=== PATIENT | female | born 1985 | race Caucasian/White ===

== ENCOUNTER 2021-02-28 09:33 | Emergency (ER) | payer MEDICAID, SELFPAY ==
[2021-02-28 09:34] VITALS: BP 117/80; PULSE 103; RESP 16; TEMP 36.6; O2SAT 100; BMI 23.2
--- NOTE | 2021-02-28 09:40 | RAD_ITS ---
STUDY: X-RAY CHEST REASON FOR EXAM: Female, 35 years old. SOB/RIB PAIN TECHNIQUE: PA and lateral views of the chest. COMPARISON: None. FINDINGS: The lungs are clear and expanded. There is no demonstrated pleural abnormality. Normal size heart. Normal mediastinum and lashell. Normal visualized pulmonary arteries. Normal visualized aortic arch and descending thoracic aorta. Normal visualized thoracic spine. Normal visualized ribs, clavicles, and shoulders. There is no demonstrated abnormality of the visualized soft tissue structures of the upper abdomen. RAD/Chest PA and Lateral IMPRESSION: Normal x-ray examination of the chest. Electronically Signed: Pop Sage MD at 9:58 EST , Service support ,
--- NOTE | 2021-02-28 10:55 | EDS_ITS ---
HPI History of Present Illness Chief Complaint: Chest Other Narrative Narrative: 35-year-old female presenting with right-sided lower back/rib pain. She states that she was moving some furniture and this area now hurts after this. She denies any direct trauma. She denies shortness of breath. She states he does have a history of a floating rib in this area. She is concerned that she might have a pneumothorax. Patient is not short of breath. No fever, chills, cough. No DVT/PE risk factors. 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 pets and animals: Yes history of recent travel: No Smoking Status: Current every day smoker tobacco type: cigarettes alcohol intake: current alcohol intake frequency: holidays/special occasions only substance use type: does not use, marijuana and other details: medical marijuana card for pain ROS ROS ED Constitutional Constitutional ED: Denies chills or fever(s) Eyes Eyes: Denies blurry vision or change in vision ENT ENT ED: Denies rhinorrhea or sore throat Cardiovascular Cardiovascular: Denies palpitations or racing heartbeat Respiratory/Chest Respiratory/Chest: Reports other Details: Right posterior rib pain ; Denies cough or dyspnea Gastrointestinal Gastrointestinal: Denies abdominal pain or nausea Genitourinary Genitourinary ED: Denies dysuria or hematuria Musculoskeletal Musculoskeletal: Reports back pain; Denies arthralgias or myalgias Integumentary Denies Abrasions or rash Neurologic Neurologic: Denies headache(s) or paresthesias Psychiatric Psychiatric: Denies anxiety or depression EXAM Physical Exam Const Vital Signs: 02/28/21 09:34 Temperature 97.8 F Temperature Source Temporal Pulse Rate 103 H Respiratory Rate 16 Blood Pressure 117/80 Blood Pressure Mean 92 Pulse Ox 100 Oxygen Delivery Method Room Air Positive well nourished General Appearance ED: NAD HEENT atraumatic Eyes PERRL and EOMs intact bilaterally Neck Neck Narrative: No tracheal deviation Chest Wall Chest Narrative: Tenderness to palpation right posterior ribs. No crepitance or deformity. Equal symmetric breath sounds and chest wall rise. Resp normal respiratory effort and clear to auscultation bilaterally Cardio regular rhythm Rate: regular rate Back/Spine Back/Spine Narrative: Tenderness to palpation right thoracic paraspinal musculature. No midline spinal deformity or step-off. Neuro oriented x3 Sensorium / Orientation: alert Psych mental status grossly normal Skin no rashes or lesions noted MDM MDM MDM Narrative Medical decision making narrative: Patient presenting with nontraumatic right- sided back pain which she is concerned may be a pneumothorax however she is had no direct trauma. I obtained a chest x-ray which on my interpretation shows no acute fractures, pneumothorax, or other acute process. Radiologist does agree. Patient did not want to have any muscle relaxers or anything kind of sedative. She was amenable to a lidocaine patch and states this is helped her before. She will be given 1 in the ED and a prescription for some. I believe this likely musculoskeletal in nature as patient has no respiratory symptoms. Impression: 1. Thoracic strain Radiography Diagnostic Testing: Clinical Impression(s) from Imaging Studies Chest X-Ray 02/28/21 09:40 IMPRESSION: Normal x-ray examination of the chest. Electronically Signed: Pop Sage MD at 9:58 EST , Service support , Discharge Plan Triage Chief Complaint: Chest Other ED Provider: Lee Vu Dx/Rx/DC Orders Instructions: ED Back Spasm, No Trauma Prescriptions: New lidocaine 5 % adhesive patch,medicated 1 patch topical DAILY PRN (Reason: pain) Qty: 1 RF: 0 Primary Care Provider: Care Physician,No Primary Referrals: Kandy Barone MD [STAFF PHYSICIAN] - As Needed Care Physician,No Primary [Primary Care Provider] - Disposition Disposition: Home, Self Care Discharge Date/Time: 02/28/21 11:12
[2021-02-28] MEDS: Lidocaine 5% Patch 1 PATCH TOPICAL (11:11)
== END 2021-02-28 11:12 | disposition home or self-care (01) ==
PROVIDERS: Emergency Provider Student in an Organized Health Care Education/Training Program
DX: S29.012A Strain of muscle and tendon of back wall of thorax, initial encounter (principal); F17.210 Nicotine dependence, cigarettes, uncomplicated; X50.0XXA Overexertion from strenuous movement or load, initial encounter; Y93.89 Activity, other specified; Y92.89 Other specified places as the place of occurrence of the external cause; Y99.8 Other external cause status
CPT/HCPCS: 71046; 99282

== ENCOUNTER → 2023-10-11 | Outpatient (CLI) | payer MEDICAID, SELFPAY ==
--- NOTE | 2023-10-11 15:37 | CT_ITS ---
STUDY: CT RIGHT ANKLE WITHOUT CONTRAST REASON FOR EXAM: Female, 37 years old. DISPLACED FX RT ANKLE RADIATION DOSAGE (If Supplied By Facility): CTDIvol = ( 15.35 ) mGy, DLP = ( 346.09 ) mGycm TECHNIQUE: Thin section transaxial imaging of the ankle was obtained, with sagittal and coronal reconstructed images. Individualized dose optimization techniques were used for this CT. COMPARISON: None. FINDINGS: Normal visualized distal t fibula. There is an acute comminuted intra-articular fracture involving the anterior medial aspect of the distal tibia and tibial plafond with minor separation of fracture fragments and mild widening of the anterior tibiotalar joint space Normal talar dome. Normal talus, calcaneus, navicular and cuboid tarsal bones. Normal subtalar, talonavicular and calcaneocuboid articulations. Normal navicular-cuneiform, cuneiform tarsal bones and intercuneiform articulations. Normal tarsometatarsal articulations and visualized metatarsi. CT/Extremity Lower without Contra IMPRESSION: Acute comminuted intra-articular fracture of the distal medial malleolus with mild widening of the anterior tibiotalar joint Electronically Signed: Emeterio Kamara MD at 17:08 EDT ,
== END | disposition home or self-care (01) ==
LOC: CT 15:27
PROVIDERS: Referring Provider Physician Assistant Surgical; Visit Provider Physician Assistant Surgical
DX: S82.841A Displaced bimalleolar fracture of right lower leg, initial encounter for closed fracture (principal)
CPT/HCPCS: 73700

== ENCOUNTER → 2023-12-15 | Outpatient (CLI) | payer MEDICAID, SELFPAY ==
--- NOTE | 2023-12-15 16:44 | MRI_ITS ---
EXAM: MR LUMBAR SPINE WITHOUT INTRAVENOUS CONTRAST CLINICAL INDICATION: pain TECHNIQUE: Multiplanar and multisequence MR images of the lumbar spine without intravenous contrast. COMPARISON: Thoracic spine radiographs, 11/03/2023; chest radiograph, 10/08/2023; CT abdomen and pelvis, 08/28/2004 FINDINGS: VERTEBRAE: No additional evidence of a fracture. Maintained lumbar lordosis. Mild chronic T12 superior endplate compression fracture with less than 25% vertebral body height loss. 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 No retropulsion of the posterior cortex no involvement of the posterior elements. No spondylolisthesis. SPINAL CORD: No significant abnormality. Normal position and signal intensity of the conus medullaris. SOFT TISSUES: No significant abnormality. DISCS/SPINAL CANAL/NEURAL FORAMINA: L1-L2: Mild bilateral facet arthrosis. No disc herniation, spinal canal stenosis, or neural foraminal narrowing. L2-L3: No significant abnormality. No disc herniation, spinal canal stenosis, or neural foraminal narrowing. L3-L4: Very subtle disc bulge and mild bilateral facet arthrosis. No disc herniation, spinal canal stenosis, or neural foraminal narrowing. L4-L5: Mild bilateral facet arthrosis and very subtle disc bulge. No disc herniation, spinal canal stenosis, or neural foraminal narrowing. L5-S1: Mild bilateral facet arthrosis. No disc herniation, spinal canal stenosis, or neural foraminal narrowing. MRI/Spine Lumbar (Routine) IMPRESSION: 1. Mild multilevel degenerative changes. No critical spinal canal and neural foraminal stenosis and there is no evidence of a nerve root impingement. 2. Mild chronic T12 superior endplate compression fracture with less than 25% vertebral body height loss. 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 No retropulsion of the posterior cortex no involvement of the posterior elements. This appears similar to that seen on prior chest radiograph. Electronically Signed: Marcell Mcleod DO at 23:59 EDT ,
== END | disposition home or self-care (01) ==
LOC: MRI 16:36
PROVIDERS: Referring Provider Orthopaedic Surgery Orthopaedic Surgery of the Spine; Visit Provider Orthopaedic Surgery Orthopaedic Surgery of the Spine
DX: S22.089A Unspecified fracture of T11-T12 vertebra, initial encounter for closed fracture (principal); M54.16 Radiculopathy, lumbar region; X58.XXXA Exposure to other specified factors, initial encounter
CPT/HCPCS: 72148

== ENCOUNTER 2024-09-08 03:27 | Outpatient (REF) | payer SELFPAY ==
[2024-09-08 03:28] VITALS: BP 130/71; PULSE 130; RESP 18; TEMP 36.7; O2SAT 99; BMI 20.2
--- OUTSIDE RECORDS SUMMARY | 2024-09-08 03:48 | XMS RPT_ITS | CCD ---
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 any records with all medication providers or retail pharmacies. Education Materials Dental Pain A crack or cavity in a tooth can cause tooth pain. This is because the crack or cavity exposes the sensitive inner area of the tooth. An infection in the gum or the root of the tooth can cause pain and swelling. The pain is often made worse when you drink hot or cold beverages. It can also be worse when you bite on hard foods. Pain may spread from the tooth to your ear or the area of the jaw on the same side. Home care Follow these tips when caring for yourself at home: Don't have hot and cold foods and drinks. Your tooth may be sensitive to changes in temperature. Use toothpaste made for sensitive teeth. Flora gently up and down instead of sideways. Brushing sideways can wear away root surfaces if they are exposed. If your tooth is chipped or cracked, or if there is a large open cavity, put oil of cloves directly on the tooth to relieve pain. You can buy oil of cloves at [employer]. Some pharmacies carry an cylb-jmh-zqziqtm toothache kit. This contains a paste that you can put on the exposed tooth to make it less sensitive. Put a cold pack on your jaw over the sore area to help reduce pain. You may use vyxl-osi-mftcjag medicine to ease pain, unless your doctor prescribed another medicine. If you have chronic liver or kidney disease, talk with your healthcare provider before using acetaminophen or ibuprofen. Also talk with your provider if you ve had a stomach ulcer or GI bleeding. If you have signs of an infection, you will be given an antibiotic. Take it as directed. Follow-up care Follow up with your dentist, or as advised. Your pain may go away with the treatment given today. But only a dentist can fully look at and treat the cause of your pain. This will keep the pain from coming back. Call 911 Call 911 if any of these occur: Unusual drowsiness Headache or stiff neck Weakness or fainting Difficulty swallowing or breathing When to seek medical advice Call your health care provider right away if any of these occur: Your face becomes swollen or red Pain gets worse or spreads to your neck Fever of 100.4 F (38.0 C) or higher, or as directed by your healthcare provider Pus drains from the tooth [id number] [place] [address]. All rights reserved. This information is not intended as a substitute for professional medical care. Always follow your healthcare professional's instructions. Additional Information VACCINATE! IT SAVES LIVES! Members of the community who have not yet received the COVID-19 vaccine and would like to receive it can visit one of [facility] vaccine clinics. There are many vaccine clinic locations within the [facility]. For locations and available times, please visit www.gettheshot.coronavirus.[place].gov /. It is important to note that some COVID mobile vaccine clinics are held outdoors and may be canceled in rainy or stormy conditions. To learn more about pediatric vaccinations (ages 5-11), we invite you to visit the [facility] webpage. https://www.[email or web address].org/page s/2948-Jklrc-Qmwujtddbzd-Frequently -Asked-Questions.html To learn more about the COVID-19 vaccine, we invite you to visit the CDC website for a list of frequently asked questions. https://www.cdc.gov/coronavirus/201 9-ncov/vaccines/faq.html [facility] Patient Portal Access Instructions: Stay connected with your healthcare team and access your personal medical information anytime with the [employer] Patient Portal. If you would like a full copy of your medical records please contact the [facility] Medical Records Department Wednesday through Wednesday between 8a.m. and 4:30p.m. Please follow the directions below to access the portal: 1.Access the email account you provided upon registration to the [facility].2.Look for an invitation email from [facility].3.Open the email and access the invitation link: Accept Invitation to [facility]4.Fill in the required ghosh to create your account. Sign into [email or web address] with your username and password that you created in the above steps to stay up to date. You can then view a summary of results, a summary of your visits, and the ability to download your summaries to your computer or send the information securely to a physician. Remember that your healthcare information is confidential, so carefully consider who you will allow to register on the [facility] Patient Portal for access to your information. You can also access the [facility] Patient Portal on the [employer]. Simply click on Health Records under Health Data and then click on the [employer] logo. HOW TO SAFELY DISPOSE OF PRESCRIPTION MEDICATIONS Please use one of the following methods to safely dispose of your unused medications. 1.Use a drug disposal kit: the drug disposal pouch allows you to safely discard your old and unused drugs. Ask your nurse to give you one when you are discharged.2.Visit a local take-back location: Many local pharmacies and police departments have programs that collect old and unwanted prescription drugs. Call your local pharmacy or go to http://[employer] [facility]Software/4O4Eo9f to find one close to you.3.Make use of household items: Use cat litter or old coffee grounds to dispose medications if other options are not available. Mix your drugs with these household products, seal them in an airtight container and throw it into the garbage. Call [facility]: [phone] to be sure your drugs can be disposed of in this way. Some medicines may require a different approach.4.Never flush your medications down the toilet. IF YOU HAVE BEEN PRESCRIBED AN OPIOIDS FOR PAIN If you have been prescribed an opioid (such as hydrocodone, oxycodone or morphine), it is critical to understand the possible side effects and risks of opioid pain medications. Even when taken as directed, opioids can have several side effects including: Tolerance, meaning you might need to take more of a medication for the same pain relief. Nausea, vomiting and/or constipation. Sleepiness, dizziness, dry mouth, confusion, depression or itching. Physical dependence, meaning you have withdrawal symptoms when a medication is stopped ? this can develop within a few days. KNOW YOUR RESPONSIBILITIES It is important to know exactly how much and how often to take the opioid pain medications you are prescribed. Never take opioids in higher amounts or more often than prescribed. Do not combine opioids with alcohol or other drugs that cause drowsiness, such as benzodiazepines, also known as benzos, including diazepam and alprazolam, muscle relaxants or sleep aids. Never sell or share prescription opioids. This is illegal. Store opioids in a secure place and out of reach of others (including children, family, friends and visitors). The last page(s) of this document has been signed and retained as a CHART COPY Signatures Patient Education Materials Dental Pain Medication Leaflets My discharge plan and instructions have been reviewed and explained to me and I,DEDIC, CLAIRE Rosanne understand my current condition and have read and understand these discharge instructions. I have received a written copy of the plan/instructions. If I have questions, I am aware that I should contact my doctor. 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 It often starts with a crack or cavity in the tooth. A pocket of pus forms between the tooth and the bone. The infection causes pain and swelling of the gum, cheek, or jaw. The pain is often made worse by drinking hot or cold fluids, or biting on hard foods. Pain may be felt in the facial sinus or in the ear. A severe infection can cause problems with swallowing and breathing. Causes Cavities Trauma Previous dental work Symptoms Pain Swelling around the tooth or face and cheek Redness Bad breath Bad taste in the mouth Fever You will be started on an antibiotic. But, final treatment requires draining the pus. This can be done by removing the tooth or getting a root canal. An oral surgeon typically removes diseased teeth. An dj instructor does a root canal. This involves drilling an opening in the tooth to get to access the canals in the root. Once these are reached, the pus can be drained. Then the canals are cleaned and shaped before filling them with a special material called jose percha. After the infection has healed, a crown is placed over the tooth. Home care The following guidelines will help you care for your abscess at home: Don't have hot or cold foods and liquids. Your tooth may be sensitive to temperature changes. If your tooth is chipped or cracked, or if there is a large open cavity, apply oil of cloves directly to the tooth to reduce pain. Oil of cloves is sold wene-upu-gbnsbaf in pharmacies. Some pharmacies carry an qrqd-wqr-iudifbf toothache kit. This contains oil of cloves and a paste, which can be applied over the exposed tooth to decrease sensitivity. Apply an ice pack (ice cubes in a plastic bag, wrapped in a towel) over the injured area for 10 to 20 minutes every 1 to 2 hours the first day for pain relief. Continue this 3 to 4 times a day until the pain and swelling goes away. To make an ice pack, put ice cubes in a plastic bag that seals at the top. Wrap the bag in a clean, thin towel or cloth. Never put ice or an ice pack directly on the skin. You can take acetaminophen or ibuprofen for pain, unless you were given a different pain medicine to use. If you have chronic liver or kidney disease, have ever had a stomach ulcer or gastrointestinal bleeding, or are taking blood-thinning medicines, talk with your healthcare provider before using these medicines. An antibiotic will be prescribed. Take it as directed until completed, even if you are feeling better sooner. Follow-up care Follow up as advised with an dj instructor, or oral surgeon. Even though your pain may improve with the treatment given today, only a dentist, dj instructor, or oral surgeon can provide full treatment for this problem. If a culture was done, you will be told if the treatment needs to be changed. You can call in as directed for the results. If X-rays were taken, they will be reviewed by a specialist. You will be given the results, especially if they affect treatment. Call 911 Call 911 if any of these occur: Trouble breathing or swallowing, or wheezing Hoarse voice or trouble speaking Confusion Extreme drowsiness or trouble awakening Fainting or loss of consciousness Rapid heart rate When to seek medical advice Call your healthcare provider right away if any of these occur: Swollen or red face or eyelid Pain gets worse or spreads to the neck You have a fever of 100.4 F (38 C) or higher, or as directed by your healthcare provider Unusual drowsiness, a headache or stiff neck, or weakness Pus drains from the gum or tooth You can't open your mouth wide [id number] [place] [address]. All rights reserved. This information is not intended as a substitute for professional medical care. Always follow your healthcare professional's instructions. Follow Up Care 10/14/2022 16:48:22 With:ROJAS CHAN DO Address: [address] [place] [phone] When:2-4 days [facility] 10-14-2022 Note Discharge Instructions Thank you for allowing [facility] to assist you with your healthcare needs. The following is important discharge information regarding your hospital visit. Diagnosis from Today's Visit Abscess - simple Dental abscess What to Do Next Instructions from Your Care Team No qualifying data available. Post Acute Orders No qualifying data available. You Need to Schedule the Following Appointments Follow Up with ROJAS CHAN DO When Within 2-4 days Where: [address] [place] [address] [phone] Allergies No Known Medication Allergies Medications Please ask your primary doctor or pharmacist before taking any other medication not listed, including over the counter drugs, herbal medications, vitamins and or supplements as they may interact with your home medications. What How Much When Instructions Last Dose New clindamycin (clindamycin 300 mg oral capsule) 1 cap by mouth Every 6 hours Duration: 10 Days Printed Prescription Unchanged lidocaine topical (lidocaine 5% topical patch) 1 patch(es) Transdermal Every day as needed for Pain apply to most painful area. remove patch after 12 hours Please take this list to your next doctor s visit. Bring all medications you take, including over the counter medications, herbals and other supplements with you to your doctor s visit. Patients and families are reminded to discard old lists and to update any records with all medication providers or retail pharmacies. Medication Leaflets clindamycin (oral/injection) (javier Jensen) Cleocin HCl, Cleocin Pediatric, Cleocin Phosphate What is the most important information I should know about clindamycin? Clindamycin can cause diarrhea, which may be severe or lead to serious, life-threatening intestinal problems. If you have diarrhea that is watery or bloody, stop using clindamycin and call your doctor. What is clindamycin? Clindamycin is an antibiotic that is used to treat serious infections caused by bacteria. Clindamycin may also be used for purposes not listed in this medication guide. What should I discuss with my healthcare provider before using clindamycin? You should not use this medicine if you are allergic to clindamycin or lincomycin. Tell your doctor if you have ever had: colitis, Crohn's disease, or other intestinal disorder; eczema, or allergic skin reaction; asthma or a severe allergic reaction to aspirin; liver or kidney disease; or an allergy to yellow food dye. It is not known whether this medicine will harm an unborn baby. Tell your doctor if you are or plan to become . Clindamycin can pass into breast milk and may cause side effects in the nursing baby. If you are while taking this medicine, call your doctor if your baby has diaper rash, redness or white patches in the mouth or throat, stomach discomfort, or diarrhea that is watery or bloody. Clindamycin injection may contain an ingredient that can cause serious side effects or in very young or premature babies. Do not give this medicine to a child without medical advice. How should I use clindamycin? Follow all directions on your prescription label and read all medication guides or instruction sheets. Use the medicine exactly as directed. Clindamycin oral is taken by mouth. Clindamycin injection is injected into a muscle, or as an infusion into a vein. A healthcare provider will give your first dose and may teach you how to properly use the medication by yourself. Take the capsule with a full glass of water to keep it from irritating your throat. Measure liquid medicine carefully. Use the dosing syringe provided, or use a medicine dose-measuring device (not a kitchen spoon). You may need frequent medical tests during treatment. If you need surgery, tell your surgeon you currently use clindamycin. Use this medicine for the full prescribed length of time, even if your symptoms quickly improve. Skipping doses can increase your risk of infection that is resistant to medication. Clindamycin will not treat a viral infection such as the flu or a common cold. Store at room temperature away from moisture and heat. Protect the injectable medicine from high heat. Do not store the oral liquid in the refrigerator. Throw away any unused oral liquid after 2 weeks. Use a needle and syringe only once and then place them in a puncture-proof 'sharps' container. Follow state or local laws about how to dispose of this container. Keep it out of the reach of children and pets. What happens if I miss a dose? Use the medicine as soon as you can, but skip the missed dose if it is almost time for your next dose. Do not use two doses at one time. What happens if I overdose? Seek emergency medical attention or call the Poison Help line at . What should I avoid while using clindamycin? Antibiotic medicines can cause diarrhea, which may be a sign of a new infection. If you have diarrhea that is watery or bloody, call your doctor. Do not use anti-diarrhea medicine unless your doctor tells you to. What are the possible side effects of clindamycin? Get emergency medical help if you have signs of an allergic reaction (hives, difficult breathing, swelling in your face or throat) or a severe skin reaction (fever, sore throat, burning in your eyes, skin pain, red or purple skin rash that spreads and causes blistering and peeling). Seek medical treatment if you have a serious drug reaction that can affect many parts of your body. Symptoms may include: skin rash, fever, swollen glands, flu-like symptoms, muscle aches, severe weakness, unusual bruising, or yellowing of your skin or eyes. Call your doctor at once if you have: kidney problems--swelling, urinating less, feeling tired or short of breath; liver problems--loss of appetite, stomach pain (upper right side), tiredness, itching, dark urine, chad-colored stools, jaundice (yellowing of the skin or eyes); any change in bowel habits; severe stomach pain, diarrhea that is watery or bloody; little or no urination; or a metallic taste in your mouth (after clindamycin injection). Common side effects may include: nausea, vomiting, stomach pain; mild skin rash; or vaginal itching or discharge; This is not a complete list of side effects and others may occur. Call your doctor for medical advice about side effects. You may report side effects to FDA at 3-259-QEA-4671. What other drugs will affect clindamycin? Sometimes it is not safe to use certain medications at the same time. Some drugs can affect your blood levels of other drugs you take, which may increase side effects or make the medications less effective. Other drugs may affect clindamycin, including prescription and vjoy-tlp-ptzkdgj medicines, vitamins, and herbal products. Tell your doctor about all your current medicines and any medicine you start or stop using. Where can I get more information? Your pharmacist can provide more information about clindamycin. Remember, keep this and all other medicines out of the reach of children, never share your medicines with others, and use this medication only for the indication prescribed. Every effort has been made to ensure that the information provided by [employer]. ('[employer]') is accurate, up-to-date, and complete, but no guarantee is made to that effect. Drug information contained herein may be time sensitive. [employer] information has been compiled for use by healthcare practitioners and consumers in the [place] and therefore [employer] does not warrant that uses outside of the [place] are appropriate, unless specifically indicated otherwise. [employer] drug information does not endorse drugs, diagnose patients or recommend therapy. [employer] drug information is an informational resource designed to assist licensed healthcare practitioners in caring for their patients and/or to serve consumers viewing this service as a supplement to, and not a substitute for, the expertise, skill, knowledge and judgment of healthcare practitioners. The absence of a warning for a given drug or drug combination in no way should be construed to indicate that the drug or drug combination is safe, effective or appropriate for any given patient. [facility] does not assume any responsibility for any aspect of healthcare administered with the aid of information [facility] provides. The information contained herein is not intended to cover all possible uses, directions, precautions, warnings, drug interactions, allergic reactions, or adverse effects. If you have questions about the drugs you are taking, check with your doctor, nurse or pharmacist. Copyright 9142-3168 [employer] [facility]. Version: 14.. Revision Date: 12/16/2021. Education Materials Dental Abscess A dental abscess is an infection of the tooth socket. It often starts with a crack or cavity in the tooth. A pocket of pus forms between the tooth and the bone. The infection causes pain and swelling of the gum, cheek, or jaw. The pain is often made worse by drinking hot or cold fluids, or biting on hard foods. Pain may be felt in the facial sinus or in the ear. A severe infection can cause problems with swallowing and breathing. Causes Cavities Trauma Previous dental work Symptoms Pain Swelling around the tooth or face and cheek Redness Bad breath Bad taste in the mouth Fever You will be started on an antibiotic. But, final treatment requires draining the pus. This can be done by removing the tooth or getting a root canal. An oral surgeon typically removes diseased teeth. An dj instructor does a root canal. This involves drilling an opening in the tooth to get to access the canals in the root. Once these are reached, the pus can be drained. Then the canals are cleaned and shaped before filling them with a special material called jose percha. After the infection has healed, a crown is placed over the tooth. Home care The following guidelines will help you care for your abscess at home: Don't have hot or cold foods and liquids. Your tooth may be sensitive to temperature changes. If your tooth is chipped or cracked, or if there is a large open cavity, apply oil of cloves directly to the tooth to reduce pain. Oil of cloves is sold eidv-sra-mgnwxpf in pharmacies. Some pharmacies carry an wchk-kxu-kmidcfq toothache kit. This contains oil of cloves and a paste, which can be applied over the exposed tooth to decrease sensitivity. Apply an ice pack (ice cubes in a plastic bag, wrapped in a towel) over the injured area for 10 to 20 minutes every 1 to 2 hours the first day for pain relief. Continue this 3 to 4 times a day until the pain and swelling goes away. To make an ice pack, put ice cubes in a plastic bag that seals at the top. Wrap the bag in a clean, thin towel or cloth. Never put ice or an ice pack directly on the skin. You can take acetaminophen or ibuprofen for pain, unless you were given a different pain medicine to use. If you have chronic liver or kidney disease, have ever had a stomach ulcer or gastrointestinal bleeding, or are taking blood-thinning medicines, talk with your healthcare provider before using these medicines. An antibiotic will be prescribed. Take it as directed until completed, even if you are feeling better sooner. Follow-up care Follow up as advised with an dj instructor, or oral surgeon. Even though your pain may improve with the treatment given today, only a dentist, dj instructor, or oral surgeon can provide full treatment for this problem. If a culture was done, you will be told if the treatment needs to be changed. You can call in as directed for the results. If X-rays were taken, they will be reviewed by a specialist. You will be given the results, especially if they affect treatment. Call 911 Call 911 if any of these occur: Trouble breathing or swallowing, or wheezing Hoarse voice or trouble speaking Confusion Extreme drowsiness or trouble awakening Fainting or loss of consciousness Rapid heart rate When to seek medical advice Call your healthcare provider right away if any of these occur: Swollen or red face or eyelid Pain gets worse or spreads to the neck You have a fever of 100.4 F (38 C) or higher, or as directed by your healthcare provider Unusual drowsiness, a headache or stiff neck, or weakness Pus drains from the gum or tooth You can't open your mouth wide [id number] The depict. [address] [place] [address], [place] [address]. All rights reserved. This information is not intended as a substitute for professional medical care. Always follow your healthcare professional's instructions. Additional Information VACCINATE! IT SAVES LIVES! Members of the community who have not yet received the COVID-19 vaccine and would like to receive it can visit one of [facility] vaccine clinics. There are many vaccine clinic locations within the [facility]. For locations and available times, please visit www.gettheshot.coronavirus.[place].gov /. It is important to note that some COVID mobile vaccine clinics are held outdoors and may be canceled in rainy or stormy conditions. To learn more about pediatric vaccinations (ages 5-11), we invite you to visit the [facility] webpage. https://www.[facility].org/page s/4427-Lklkq-Zhevkvvxsvr-Frequently -Asked-Questions.html To learn more about the COVID-19 vaccine, we invite you to visit the CDC website for a list of frequently asked questions. https://www.cdc.gov/coronavirus/201 9-ncov/vaccines/faq.html [facility] Patient Portal Access Instructions: Stay connected with your healthcare team and access your personal medical information anytime with the [facility] Patient Portal. If you would like a full copy of your medical records please contact the [facility] Medical Records Department Wednesday through Wednesday between 8a.m. and 4:30p.m. Please follow the directions below to access the portal: 1.Access the email account you provided upon registration to the hospital.2.Look for an invitation email from [facility].3.Open the email and access the invitation link: Accept Invitation to [facility]4.Fill in the required ghosh to create your account. Sign into [email or web address] with your username and password that you created in the above steps to stay up to date. You can then view a summary of results, a summary of your visits, and the ability to download your summaries to your computer or send the information securely to a physician. Remember that your healthcare information is confidential, so carefully consider who you will allow to register on the [facility] Patient Portal for access to your information. You can also access the [facility] Patient Portal on the [employer]. Simply click on Health Records under Health Data and then click on the [employer] logo. HOW TO SAFELY DISPOSE OF PRESCRIPTION MEDICATIONS Please use one of the following methods to safely dispose of your unused medications. 1.Use a drug disposal kit: the drug disposal pouch allows you to safely discard your old and unused drugs. Ask your nurse to give you one when you are discharged.2.Visit a local take-back location: Many local pharmacies and police departments have programs that collect old and unwanted prescription drugs. Call your local pharmacy or go to http://[facility].FairSoftware/9K3Vn9g to find one close to you.3.Make use of household items: Use cat litter or old coffee grounds to dispose medications if other options are not available. Mix your drugs with these household products, seal them in an airtight container and throw it into the garbage. Call [facility]: [phone] to be sure your drugs can be disposed of in this way. Some medicines may require a different approach.4.Never flush your medications down the toilet. IF YOU HAVE BEEN PRESCRIBED AN OPIOIDS FOR PAIN If you have been prescribed an opioid (such as hydrocodone, oxycodone or morphine), it is critical to understand the possible side effects and risks of opioid pain medications. Even when taken as directed, opioids can have several side effects including: Tolerance, meaning you might need to take more of a medication for the same pain relief. Nausea, vomiting and/or constipation. Sleepiness, dizziness, dry mouth, confusion, depression or itching. Physical dependence, meaning you have withdrawal symptoms when a medication is stopped ? this can develop within a few days. KNOW YOUR RESPONSIBILITIES It is important to know exactly how much and how often to take the opioid pain medications you are prescribed. Never take opioids in higher amounts or more often than prescribed. Do not combine opioids with alcohol or other drugs that cause drowsiness, such as benzodiazepines, also known as benzos, including diazepam and alprazolam, muscle relaxants or sleep aids. Never sell or share prescription opioids. This is illegal. Store opioids in a secure place and out of reach of others (including children, family, friends and visitors). The last page(s) of this document has been signed and retained as a CHART COPY Signatures Patient Education Materials Tooth Abscess Medication Leaflets clindamycin (oral/injection) My discharge plan and instructions have been reviewed and explained to me and I,CLAIRE SMITH understand my current condition and have read and understand these discharge instructions. I have received a written copy of the plan/instructions. If I have questions, I am aware that I should contact my doctor. 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: ____ Date/Time: Relationship to Patient: __ Witness Name/Signature: Date/Time: [facility] 08-28-2021 Evaluation + Plan note Diagnostic Tests PendingRheumatoid Factor 08/28/21Antinuclear Antibody Screen, Serum 08/28/21 Future Scheduled TestsMRI Spine Cervical w/o Contrast 07/23/21 [facility] 06-26-2020 Evaluation + Plan note Future Scheduled TestsPathology Drop Wire Aligner Request 06/26/20XR Chest 2 Views (PA & Lateral) 06/13/20 [facility] Evaluation + Plan note Future Appointments Appointment Date:05/15/2021 10:30:00 AM Scheduled Provider: Location:[facility] Appointment Type:US OB < 14 weeks Future Scheduled TestsPathology Drop Wire Aligner Request 06/26/20XR Chest 2 Views (PA & Lateral) 06/13/20 [facility] Evaluation note Diagnosis Bimalleolar ankle fracture, right, closed, with routine healing, subsequent encounter- Primary documented in this encounter [facility] Diagnosis Injury of right ankle, initial encounter- Primary documented in this encounter [facility]* Diagnosis Bimalleolar ankle fracture, right, closed, with routine healing, subsequent encounter- Primary documented in this encounter [facility]* Diagnosis Bimalleolar ankle fracture, right, closed, with routine healing, subsequent encounter- [facility] Diagnosis Bimalleolar ankle fracture, right, closed, with routine healing, subsequent encounter- [facility] Diagnosis Post-traumatic arthritis of ankle, right- Primary Painful orthopaedic hardware Other complications due to other internal orthopedic device, implant, and graft [facility] Diagnosis Right ankle pain, unspecified chronicity documented in this encounter [facility] note* Diagnosis Closed fracture of right ankle, initial encounter- Primary documented in this encounter [facility] course Narrative No data available for this section [facility] Hospital Discharge instructions No data available for this section [facility] Progress note No data available for this section [facility] Reason for visit Narrative* Diagnostic Procedure Only (Routine) - Closed Specialty Diagnoses / Procedures Referred By Contac t Referred To Contact XR IMAGING Diagnoses Right ankle pain, unspecified chronicity Procedures XR ANKLE GENERAL 3V AP/LAT/OBL RIGHT RADEX ANKLE COMPLETE MINIMUM 3 VIEWS Theodore Michael [address] [place] [address] Phone: tel: fax: [place] [phone] Referral ID Status Reason Start Date Expiration Date V isits Requested Visits Authorized [id number] Closed Auto-Generate d Referral 08/02/2024 09/01/2025 1 1 [facility] Summary Purpose Family History No Family History Records Found Advance Directives No Advanced Directives Records FoundNo Advanced Directives Records FoundNo Advanced Directives Records FoundNo Advanced Directives Records Found Additional Source Comments Care Team (unrecognized sect ion and content) Personnel Name: ROJAS CHAN DO Address: [address] [place] [address] [facility] [place], [place] [address] Name: Manju Nash PT Care Team Personnel Name: Manju Nash PT Position: P3 Scheduling - Excavation Laborer Advanced Member Role: Other Name: CATHERINE MAHARAJ MD Member Role: Pain Management Address: Address: [address] [place] [address] Pain Management [place], [place] [address] Name: ROJAS CHAN DO Position: P4 Physician - Primary Care Member Role: Primary Care Physician Address: Address: [address] [place] [address]- Name: ASHLEY SEE MD Position: ED Physician Member Role: Attending Physician Address: Address: [facility] [address] [place] [address]- Care Team Related Persons Name: JOSHUA SMITH Address: [facility] MAIN Address: Home [address] [place], [place] [id number] Address: Temporary [address] [place], [place] [id number] Name: IESHA WEAVER Address: Home [address] [place], [place] [phone] [place] Address: Temporary [address] [place] [phone] Name: DUSKEY, RAINY Name: DUSKEY, RAINY Name: DUSKEY, RAINY Name: DUSKEY, RAINY Name: DUSKEY, RAINY Name: DUSKEY, RAINY Name: BIBI DEL REAL Address: Home [address] [place] [address] Care Team Personnel Name: Manju Nash Clermona Kinsey PT Position: P3 Scheduling - Excavation Laborer Advanced Member Role: Other Name: CATHERINE MAHARAJ MD Member Role: Pain Management Address: Address: [address] [place] [address] [address] [place] [address]- Name: ROJAS CHAN DO Position: P4 Physician - Primary Care Member Role: Primary Care Physician Address: Address: [address] [place] [address]- Care Team Related Persons Name: JOSHUA SMITH Address: [facility] MAIN Address: Home [address] [place], [place] [id number] Address: Temporary [address] [place], [place] [id number] Name: IESHA WEAVER Address: Home [address] [place], [place] [id number] [place] Address: Temporary [address] [place], [place] [phone] Name: DUSKEY, RAINY Name: DUSKEY, RAINY Name: DUSKEY, RAINY Name: DUSKEY, RAINY Name: DUSKEY, RAINY Name: DUSKEY, RAINY Name: GREEN, BIBI M Address: Home [address] [place] [address] Care Team Personnel Name: Manju Nash Clermona Kinsey PT Position: P3 Scheduling - Excavation Laborer Advanced Member Role: Other Name: CATHERINE MAHARAJ MD Member Role: Pain Management Address: Address: [address] [place] [address] [address] Name: ROJAS CHAN DO Position: P4 Physician - Primary Care Member Role: Primary Care Physician Address: Address: [address] [place] [id number] Care Team Related Persons Name: JOSHUA SMITH Address: [facility] MAIN Address: Home [address] [place], [place] [id number] Address: Temporary [address] [place] [id number] Name: IESHA WEAVER Address: Home [address] [place] [phone] [place] Address: Temporary [address] [place] [phone] Name: DUSKEY, RAINY Name: DUSKEY, RAINY Name: DUSKEY, RAINY Name: DUSKEY, RAINY Name: DUSKEY, RAINY Name: DUSKEY, RAINY Name: GREEN, BIBI M Address: Home [address] [place] [address] Care Team Personnel Name: Manju Nash Clermona Kinsey PT Position: P3 Scheduling - Excavation Laborer Advanced Member Role: Other Name: CATHERINE MAHARAJ MD Member Role: Pain Management Address: Address: [address] [place] [address] [address] Name: ROJAS CHAN DO Position: P4 Physician - Primary Care Member Role: Primary Care Physician Address: Address: [address] [place] [id number] Care Team Related Persons Name: JOSHUA SMITH Address: [facility] MAIN Address: Home [address] [place], [place] [phone] Address: Temporary [address] [place] [phone] Name: IESHA WEAVER Address: Home [address] [place], [place] [phone] [place] Address: Temporary [address] [place], [place] [phone] Name: DUSKEY, RAINY Name: DUSKEY, RAINY Name: DUSKEY, RAINY Name: DUSKEY, RAINY Name: DUSKEY, RAINY Name: DUSKEY, RAINY Name: BIBI DEL REAL Address: Home [address] [place] [address] INFORMATION SOURCE (unrecogn ized section and content) DATE CREATED AUTHOR 10/13/2023 [facility] DATE CREATED AUTHOR AUTHOR'S ORGANIZ ATION 12/19/2023 [facility] DATE CREATED AUTHOR AUTHOR'S ORGANIZ ATION 02/13/2024 [facility] DATE CREATED AUTHOR AUTHOR'S ORGANIZ ATION 08/20/2024 [facility] Reason for Visit (unrecogniz ed section and content) Reason Comments New Patient Right ankle fx, DOI 10/01/23 - [facility] Specialty Diagnoses / Procedures Referred By Rafael sanon Referred To Contact Diagnoses Displaced bimalleolar fracture of right lower leg, subsequent encounter for closed fracture with routine healing Procedures MT OPEN TREATMENT BIMALLEOLAR ANKLE FRACTURE CHG MANUAL APPL STRESS PFRMD PHYS/QHP JOINT FILMS OPEN REDUCTION INTERNAL FIXATION RIGHT BIMALLEOLAR ANKLE FRACTURE WITH ALLOGRAFT, STRESS EXAM RIGHT ANKLE UNDER FLUOROSCOPY Open reduction internal fixation right bimalleolar ankle fracture with allograft, Stress exam right ankle under fluoroscopy Robert Culp MD [address] [facility] [address] [place] [address] Referral ID Status Reason Start Date Expiration Date Visits Re quested Visits Authorized [id number] 10/27/2023 1 1 Reason Comments Post-op Right bimalleolar an kle fracture Sx 11/01/23 Reason Comments Post-op ORIF right bimalleol ar ankle Reason Comments New Pain Scheduled Active and Recently Administ ered Medications (unrecognized section and content) Medication Order 10/30/2023 10/31/2023 11/01/2023 acetaminophen (Tylenol) tablet 1,000 mg (COMPLETED) 1,000 mg, Oral, Once, On 11/01/23 at 0645, For 1 dose, Preprocedure, Maximum dose of acetaminophen is 4000 mg from all sources in 24 hours. Do not administer if patient has taken tylenol <6 hours earlier. Do not give if contraindicated ie. patient has active liver disease or cirrhosis. 0658 (Given - Provid er: Annia Eugene RN) ceFAZolin in dextrose 4% (Ancef) IVPB 2,000 mg (COMPLETED) 2,000 mg, IntraVENous, Administer over 30 Minutes, Once, On Wed11/01/23 at 0645, For 1 dose, Preprocedure, Administer within 1 hour prior to incision. Recommend to repeat in 3-4 hours after initial dose if still intra-op. premix bag, Suspected Indication (Select all that apply): Surgical Prophylaxis 0725 (Given - Provid er: Henri Bey APRN - SILAS)0850 (Anesthesia Volume Adjustment - Provider: ALYSON Mckeon CRNA) celecoxib (CeleBREX) capsule 400 mg (COMPLETED) 400 mg, Oral, Once, On Wed11/01/23 at 0645, For 1 dose, Preprocedure, Avoid with sulfa allergy or creatinine greater than 1.5. Avoid severe hepatic impairment or renal transplant. Avoid if Age > 69. 0658 (Given - Provid er: Annia Eugene RN) famotidine (Pepcid) tablet 20 mg (COMPLETED)(Linked Group 1) 20 mg, Oral, Once, On Wed11/01/23 at 0645, For 1 dose, Preprocedure, IV or ORAL 0658 (Given - Provid er: Annia Eugene RN) sodium chloride 0.9% (NS) flush 10 mL 10 mL, IntraVENous, Every 12 hours scheduled (2 times per day), First dose on Wed11/01/23 at 0900, Preprocedure 0900 (Canceled Entry - Provider: Automatic Discharge Provider - Comment: Automatically canceled at discontinue of medication order) PRN Medication Order 10/30/2023 10/31/2023 11/01/2023 ALPRAZolam (Xanax) disintegrating tablet 0.25 mg 0.25 mg, Oral, PRN, anxiety, Starting on Wed11/01/23 at 0636, For 1 dose, Preprocedure sodium chloride 0.9 % infusion 5-250 mL/hr, IntraVENous, PRN, if patient receiving piggyback infusions and maintenance fluids are not ordered OR KVO fluids to protect IV site / prevent frequent line interruptions/ long duration, Starting on Wed11/01/23 at 0636, Preprocedure, For piggyback infusion, administer at same rate as piggyback for a total of 25 mL. Enter 25 mL into dose field and piggyback rate into rate field of order. If piggyback is infusing at a rate less than 100 mL/hr, enter 25 mL into dose field and 100 mL/hr into rate field of order. For KVO fluids, enter rate of 20 mL/hr or less into rate field of order. 0704 (New Bag - Prov ider: Cee Angela RN)0718 (Continued by Anesthesia - Provider: ALYSON Mckeon CRNA)0850 (Stopped - Provider: ALYSON Mckeon CRNA) sodium chloride 0.9 % irrigation solution (CANCELED) As needed, Starting on Wed11/01/23 at 0746, Intraprocedure 0746 (Given - Provid er: Robert Culp MD) sodium chloride 0.9% (NS) flush 10 mL 10 mL, IntraVENous, PRN, line care, Starting on Wed11/01/23 at 0636, Preprocedure, After every IV line use Xeroform Petrolat Gauze 1x8 pad (CANCELED) As needed, Starting on Wed11/01/23 at 0844, Intraprocedure 0844 (Given - Provid er: Robert Culp MD - Comment: RIGHT ANKLE) Linked Groups Order Group 1: famotidine (Pepcid) tablet 20 mg (COMPLETED)Jump to med 20 mg, Oral, Once, On Wed11/01/23 at 0645, For 1 dose, Preprocedure, IV or ORAL Or famotidine (Pepcid) 20 mg in sodium chloride (PF) 0.9 % 10 mL injection (COMPLETED) 20 mg, IntraVENous, Administer over 2 Minutes, Once, On Wed11/01/23 at 0645, For 1 dose, Preprocedure, IV or ORAL Source Comments (unrecognize d section and content) In the event this informatio n is protected by the Federal Confidentiality of Alcohol and Drug Abuse Patient Records regulations: The Federal rules restrict any use of the information to criminally investigate or prosecute any alcohol or drug abuse patient.[facility] the event this information is protected by the Federal Confidentiality of Alcohol and Drug Abuse Patient Records regulations: The Federal rules restrict any use of the information to criminally investigate or prosecute any alcohol or drug abuse patient.[facility] Hospital[facility] the event this information is protected by the Federal Confidentiality of Alcohol and Drug Abuse Patient Records regulations: The Federal rules restrict any use of the information to criminally investigate or prosecute any alcohol or drug abuse patient.[facility] the event this information is protected by the Federal Confidentiality of Alcohol and Drug Abuse Patient Records regulations: The Federal rules restrict any use of the information to criminally investigate or prosecute any alcohol or drug abuse patient.[facility] Hospital[facility] the event this information is protected by the Federal Confidentiality of Alcohol and Drug Abuse Patient Records regulations: The Federal rules restrict any use of the information to criminally investigate or prosecute any alcohol or drug abuse patient.[facility] FOR RECORDS PERTAINING TO PATIENTS WHO ARE OR HAVE BEEN ENROLLED IN A CHEMICAL DEPENDENCY/SUBSTANCEABUSE PROGRAM, SOME INFORMATION MAY BE OMITTED. This clinical summary was aggregated from multiple sources. Caution should be exercised in using it in the provision of clinical care. This summary normalizes information from multiple sources, and as a consequence, information in this document may materially change the coding, format and clinical context of patient data. In addition, data may be omitted in some cases. CLINICAL DECISIONS SHOULD BE BASED ON THE PRIMARY CLINICAL RECORDS. [facility] provides no warranty or guarantee of the accuracy or completeness of information in this document.
--- NOTE | 2024-09-08 04:00 | RAD_ITS ---
PROCEDURE: THORACIC SPINE 3 VIEWS 09/08/2024 REASON FOR EXAM: PAIN TECHNIQUE: THORACIC SPINE 3 VIEWS COMPARISON: MRI of the lumbar spine on 12/15/2023. FINDINGS: Mild chronic compression fracture of T12 vertebral body. No evidence of associated retropulsion or secondary canal stenosis. Mildly increased kyphosis at the level of the thoracolumbar junction. Normal visualized thoracic vertebrae. Normal disc space heights and vertebral endplates. Normal kyphosis. Normal visualized soft tissue structures. RAD/Thoracic Spine 3 Views IMPRESSION: No evidence for acute abnormality. Reading [facility]
--- NOTE | 2024-09-08 04:00 | RAD_ITS ---
PROCEDURE: LUMBAR SPINE 2 OR 3 VIEWS 09/08/2024 REASON FOR EXAM: PAIN TECHNIQUE: LUMBAR SPINE 2 OR 3 VIEWS COMPARISON: None. FINDINGS: Mild chronic compression deformity of T12 vertebral body. No evidence of associated retropulsion or secondary canal stenosis. Mildly increased kyphosis at the level of the thoracolumbar junction. Mildly exaggerated lumbar lordosis. Mild levoscoliosis apex at L3. T12-L1: Normal disc height. Normal endplates. Normal alignment of the vertebrae. L1-2: Normal disc height. Normal endplates. Normal alignment of the vertebrae. L2-3: Normal disc height. Normal endplates. Normal alignment of the vertebrae. L3-4: Normal disc height. Normal endplates. Normal alignment of the vertebrae. L4-5: Normal disc height. Normal endplates. Normal alignment of the vertebrae. L5-S1: Normal disc height. Normal endplates. Normal alignment of the vertebrae. The soft tissue structures are unremarkable. RAD/Lumbar Spine 2 or 3 Views IMPRESSION: Mild chronic compression deformity of T12 vertebral body. No evidence of associ ated retropulsion or secondary canal stenosis. Mildly increased kyphosis at the level of the thoracolumbar junction. Mildly exaggerated lumbar lordosis. Mild levoscoliosis apex at L3. Reading Location: [facility]
--- NOTE | 2024-09-08 04:00 | RAD_ITS ---
PROCEDURE: CHEST PA AND LATERAL 09/08/2024 REASON FOR EXAM: CHEST PAIN TECHNIQUE: CHEST PA AND LATERAL COMPARISON: None. FINDINGS: The lungs are expanded. There is no demonstrated parenchymal abnormality. There is no demonstrated pleural abnormality. Normal heart and pericardium. Normal mediastinum and lashell. Normal visualized pulmonary arteries. Normal visualized aortic arch and descending thoracic aorta. Normal visualized thoracic spine. Normal visualized ribs, clavicles, and shoulders. There is no demonstrated abnormality of the visualized soft tissue structures of the upper abdomen. RAD/Chest PA and Lateral IMPRESSION: No evidence for acute abnormality. Reading Location[facility]
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
[2024-09-08 04:56] VITALS: BP 112/62; PULSE 110; RESP 18; TEMP 36.4; O2SAT 100
--- OUTSIDE RECORDS SUMMARY | 2024-09-08 05:05 | XMS RPT_ITS | CCD ---
Author Organization [facility] Care Team Providers Care Elastic Attacher Overlock Name Role Phone ROCIO ORTEZ, DR XIE Primary Care Physician [phone] Saad PT, Amelie Unavailable Unavailable [facility] , MARQUIS Attending Unavailable ROCIO ORTEZ, DR XIE Primary Care Unavailable ROCIO ORTEZ, DR XIE Primary Care Unavailable MAYI EDGAR, ASHLEY Gonsalves Attending Unavail able MAYI EDGAR, ASHLEY Gonsalves Attending Unavail able ROCIO ORTEZ, DR XIE Primary Care Unavailable Unavailable Primary Care Provider Unavailabl e ROBBI, ROBERT Attending Unavailable CULP, ROBERT Attending Unavailable LETY, PNEG Referring Unavailable LETY, PENG Referring Unavailable CULP, ROBERT Admitting Unavailable CULP, ROBERT Attending Unavailable CULP, ROBERT Attending Unavailable Shabnam, Marion Attending Unavailable Shabnam, Marion Referring Unavailable Care Physician, No Primary Primary Care Unava ilable Devon Urbano Attending Unavailable Care Physician, No Primary Referring Unava ilable Care Physician, No Primary Primary Care Unava ilable NanciKodi hopson Attending Unavailable Care Physician, No Primary Primary Care Unava ilable Devon Urbano Attending Unavailable Care Physician, No Primary Primary Care Unava ilable Care Physician, No Primary Referring Unava ilable NanciWing hopsonril Attending Unavailable Care Physician, No Primary Primary Care Unava ilable Enrique Urbanoag Attending Unavailable Urbano, Devon Referring Unavailable Care Physician, No Primary Primary Care Unava ilable Unavailable Primary Care Provider UnavailTHEODORE Ellis Referring Unavailable TESTELYSSA, THEODORE Attending Unavailable TESTTHEODORE PERALTA Referring Unavailable Care Physician, No Primary Primary Care Provider Unavailable Dr. Romie Gillis DO Emergency Provider Medications Current Medications Medication Drug Class(es) Dates Sig (Normalized) Sig (Original) acetaminophen 325 mg oral tablet (7 sources) Start: 11-01-2023 End: 12-01-2023 take 1 tablet by mouth every six hours as needed for pain acetaminophen (Tylenol) 325 MG tablet Take 1 tablet (325 mg) by mouth every 6 hours as needed for mild pain (1-3). Do not take if already taking Woody (Hydrocodone) as it has Tylenol (Acetaminophen) in it already. 120 tablet 11/01/2023 12/01/2023 Active Start: 11-01-2023 End: 11-01-2023 take 1000 mg by mouth once, then take 4000 mg by mouth every twenty-four hours 1,000 mg, Oral, Once, On Wed11/01/23 at 0645, For 1 dose, Preprocedure, Maximum [...] pain (1-3). 120 tablet 12/14/2023 01/13/2024 Active meloxicam 15 mg oral tablet (6 sources) [...] 0 Refill(s) Start Date: 07/18/20 Status: Ordered White Clay (Nk) (1 source) Start: 09-08-2024 [place] (Nk) Active September 08, 2024 12:00am oxyCODONE hydrochloride 5 mg oral tablet (2 [...] renal transplant. Avoid if Age > 69. lidocaine 0.05 mg/mg medicated patch (7 sources) Antiarrhythmic, Amide Local Anesthetic Start: 02-28-2021 End: 02-11-2024 Lidocaine 5 % adhesive patch,medicated Discontinued 1 NMA TOPICAL DAILY as needed for pain February 28, 2021 11:57am February 11, 2024 4:02pm leave on most painful area for up to 12 hrs Start: 06-13-2020 lidocaine 5% t opical patch Apply 1 patch(es), Transdermal, Daily, PRN Pain, apply to most painful area. remove patch after 12 hours, # 30 patch(es), 0 Refill(s), Pharmacy: [facility], 151, cm, 06/13/20 13:07:00 EDT, Height, 52.1, kg, 06/13/20 13:07:00 EDT, Dosing Weight Start Date: 06/13/20 Status: Ordered 5 ml sodium chloride 9 mg/ml injection [...] sources) Low blood pressure 06-13-2020 Episodic Other connective tissue disease (1 source) Finding of rib structure; Translations: [Other symptoms and signs involving the musculoskeletal system] 12-09-2020 Episodic Other fractures (1 source) Closed fracture thoracic vertebra, wedge; Translations: [Wedge compression fracture of unspecified thoracic vertebra, initial encounter for closed fracture] Onset: 10-01-2023 Episodic Other fractures (1 source) Unspecified fracture of T11-T12 vertebra, initial encounter for closed fracture; Translations: [Unspecified fracture of T11-T12 vertebra, initial encounter for closed fracture] Onset: 01-13-2024 Episodic Other fractures (1 source) Fracture of twelfth thoracic vertebra; Translations: [Wedge compression fracture of T11-T12 vertebra, initial encounter for closed fracture] 02-11-2024 Episodic Other gastrointestinal disorders (6 sources) Abdominal [...] sources) Decreased vitamin B12 level 05-22-2020 Episodic Other skin disorders (1 source) Skin lesion; Translations: [Disorder of the skin and subcutaneous tissue, unspecified] 12-09-2020 Episodic Laurence-; endo-; and myocarditis; cardiomyopathy (except [...] sources) Degeneration of intervertebral disc 07-25-2013 Chronic Spondylosis; intervertebral disc disorders; other back problems (11 sources) Lumbago with sciatica; Translations: [Pain in thoracic spine] Onset: 11-03-2023 07-18-2020 Episodic Substance-related disorders (6 sources) Marijuana user 06-20-2019 Episodic Unclassified (6 sources) Breast feeding (infant) (observable entity) 07-05-2017 Comment on above: System added from do cumentation. Breast feeding Status documented as Yes on Admission Unclassified (6 sources) Finding of rib structure 06-20-2019 Unclassified (6 sources) Streptococcus agalactiae (organism) 07-30-2015 Past or Other Problems Problem Classification Problem Date Documented Da te Episodic/Chronic Other and delivery including normal (6 sources) care status Onset: 07-05-2017 07-05-2017 Episodic Unclassified (1 source) Closed fracture of right ankle 08-07-2024 Results Test Name Value Interpretation Reference Range Facility [facility] ([id number]) 1985 F Date Time Provider Department 08/07/24 THEODORE MICHAEL During your visit today, we recorded the following information about you: Jemma Akers, LAI 08/08/2024 3:20 PM Signed Theodore Michael [facility] Podiatry Severy23 hours ago (4:11 PM) I ordered a [...] is being referred to a provider in [place]. Explained that this is a second opinion [...] needs to see a physician out in [place] that she would just return to the initial physician in [place] as it is about the same driving distance or closer. Jemma Akers, LAI 08/15/2024 4:30 PM Signed Patient canceled follow [...] Encounter Status:Closed by CORINNA BOBO [facility] CLAIRE SM[facility] ([id number]) 1985 F Date Time Provider Department 08/07/24 [...] Diagnosis:Closed fracture of right ankle, initial encounter [S82.891A] Order(s):CT ANKLE WO IVCON RIGHT [[id number]] Order #: [id number] FUTURE Prescriptions as of 08/07/2024 - meloxicam (MOBIC) 15 mg tablet Take 1 tablet by mouth once daily. Problem List As Of Date: 08/07/2024 (None) Encounter Status:Closed by THEODORE MICHAEL DPM on 08/07/24 [facility] CNOVon 08-04-2024 CNOV Office Visit (PODIWS) CLAIRE SMITH ([id number]) 1985 F Date Time Provider Department 08/04/24 8:15 AM TESTRAKE, THEODORE PODIWS During your visit today, we recorded the following information about you: Ciara Diaz SVEN 08/05/2024 10:53 AM Signed AMB ROOMING INTAKE [...] Powerstep Original Full length. Can purchase at [facility] Runner and boots,shoes and more here in [place], [employer] in [place] or [place]. Also can find in [place] in [facility]. Powersteps can also be purchased online, [...] ankle pain. This prescription was sent to [facility] on [facility] in [place]. Arrange to have the blood work ordered [...] utilize the above equipment. Corinna Bobo LPN Theodore Michael 08/05/2024 10:53 AM Signed Subjective Claire is [...] graft placement in September. - Lives in [place], surgery performed in [place]. - Smokes approximately one pack per day. [...] taken once (more content not included)... Normal [facility] CNPNon 08-04-2024 CNPN Telephone (PODIWS) CLAIRE SMITH ([id number]) 1985 F Date Time Provider Department 08/04/24 THEODORE MICHAEL PODIWS During your visit today, we recorded the following information about you: Corinna Bobo LPN 08/04/2024 2:50 PM Signed Theodore Michael [facility] Podiatry Pool1 hour ago (1:03 PM) Please call patient to inform her that her blood work is essentially normal. Her kidney function is normal. She can take the mobic once daily as needed for pain BRY Alas Amelia, LPN 08/04/2024 2:50 PM Signed Patient notified [...] Status:Closed by CORINNA BOBO on 08/04/24 Normal [facility] Comprehensive metabolic 2000 panelOrdered By: Arely Griffiths on 08-04-2024 Albumin [Mass/Vol] 4.3 g/dL 3.9 - 4.9 g/dL [facility] ALP [Catalytic activity/Vol] 80 U/L 34 - 123 U/L [facility] ALT [Catalytic activity/Vol] 14 U/L 7 - 38 U/L [facility] Anion gap [Moles/Vol] 11 mmol/L 8 - 15 mmol/L [facility] AST [Catalytic activity/Vol] 18 U/L 13 - 35 U/L [facility] Bilirubin [Mass/Vol] 0.2 mg/dL 0.2 - 1 .3 mg/dL [facility] Calcium [Mass/Vol] 9.4 mg/dL 8.5 - 10. 2 mg/dL [facility] Chloride [Moles/Vol] 107 mmol/L 98 - 10 7 mmol/L [facility] CO2 [Moles/Vol] 20 mmol/L Low 22 - 30 mmol/L [facility] Creatinine [Mass/Vol] 0.68 mg/dL 0.58 - 0.96 mg/dL [facility] GFR/1.73 sq M.predicted among non-blacks MDRD (S/P/Bld) [Vol rate/Area] 116 mL/min/{1.73_m2} - PINF [facility] Comment on above: Estimated Glomerular Filtration Rate [...] [Mass/Vol] 89 mg/dL 74 - 99 mg/dL [facility] Comment on above: The [place] Diabete s Association (ADA) provides guidance for [...] Standards of Medical Care in Diabetes 2016, [place] Diabetes Association. Diabetes Care. 2016.39(Suppl 1). Interpretation and review of laboratory results Abnormal [facility] Potassium [Moles/Vol] 4.2 mmol/L 3.7 - 5.1 mmol/L [facility] Protein [Mass/Vol] 6.8 g/dL 6.3 - 8.0 g/dL [facility] Sodium [Moles/Vol] 138 mmol/L 136 - 144 mmol/L [facility] Urea nitrogen [Mass/Vol] 9 mg/dL 7 - 21 mg/dL [facility] Comprehensive metabolic 2000 panelon 08-04-2024 Albumin [Mass/Vol] 4.3 g/dL Normal 3.9-4.9 [facility] Comment on above: Order Comment: Speci men Type: BLOOD SPECIMEN Ordering Facility: [facility] Address: [address] [place] [address] Performed By: #### 2 4323-8 #### [facility] CLIA [id number] [address] [place] [address] [place] ALP [Catalytic activity/Vol] 80 U/L Normal 34-123 [facility] Comment on above: Order Comment: Speci men Type: BLOOD SPECIMEN Ordering Facility: [facility] Address: [address] [place] [address] Performed By: #### 2 4323-8 #### [facility] CLIA [id number] [address] [place] [address] [place] ALT [Catalytic activity/Vol] 14 U/L Normal 7-38 [facility] Comment on above: Order Comment: Speci men Type: BLOOD SPECIMEN Ordering Facility: [facility] Address: [address] [place] [address] Performed By: #### 2 4323-8 #### [facility] CLIA [id number] [address] [place] [address] [place] Anion gap [Moles/Vol] 11 mmol/L Normal 8-15 [facility] Comment on above: Order Comment: Speci men Type: BLOOD SPECIMEN Ordering Facility: [facility] Address: [address] [place] [address] Performed By: #### 2 4323-8 #### [facility] CLIA [id number] [address] [place] [address] [place] AST [Catalytic activity/Vol] 18 U/L Normal 13-35 [facility] Comment on above: Order Comment: Speci men Type: BLOOD SPECIMEN Ordering Facility: [facility] Address: [address] [place] [address] Performed By: #### 2 4323-8 #### [facility] CLIA [id number] [address] [place] [address] [place] Bilirubin [Mass/Vol] 0.2 mg/dL Normal 0.2-1.3 [facility] Comment on above: Order Comment: Speci men Type: BLOOD SPECIMEN Ordering Facility: [facility] Address: [address] [place] [address] Performed By: #### 2 4323-8 #### [facility] CLIA [id number] [address] [place] [address] [place] Calcium [Mass/Vol] 9.4 mg/dL Normal 8.5-10.2 [facility] Comment on above: Order Comment: Speci men Type: BLOOD SPECIMEN Ordering Facility: [facility] Address: [address] [place] [address] Performed By: #### 2 4323-8 #### [facility] CLIA [id number] [address] [place] [address] [place] Chloride [Moles/Vol] 107 mmol/L Normal 98-107 [facility] Comment on above: Order Comment: Speci men Type: BLOOD SPECIMEN Ordering Facility: [facility] Address: [address] [place] [address] Performed By: #### 2 4323-8 #### [facility] CLIA [id number] [address] [place] [address] [place] CO2 [Moles/Vol] 20 mmol/L Low 22-30 [facility] Comment on above: Order Comment: Speci men Type: BLOOD SPECIMEN Ordering Facility: [facility] Address: [address] [place] [id number] Performed By: #### 2 4323-8 #### [facility] CLIA [id number] [address] [place] [address] [place] Creatinine [Mass/Vol] 0.68 mg/dL Normal 0.58-0.96 [facility] Comment on above: Order Comment: Anand gomez Type: BLOOD SPECIMEN Ordering Facility: [facility] Address: [address] [place] [address] Performed By: #### 2 4323-8 #### [facility] [id number] [address] [place] [address] [place] Creatinine and Glomerular filtration rate.predicted panel (S/P/Bld) 116 mL/min/1.73m??? Normal >=60 [facility] Comment on above: Order Comment: Anand gomez Type: BLOOD SPECIMEN Ordering Facility: [facility] Address: [address] [place] [address] Result Comment: Lissette mated Glomerular Filtration Rate [...] GFR. Performed By: #### 2 4323-8 #### [facility] [id number] [address] [place] [address] [place] Glucose [Mass/Vol] 89 mg/dL Normal 74-99 [facility] Comment on above: Order Comment: Anand gomez Type: BLOOD SPECIMEN Ordering Facility: [facility] Address: [address] [place] [address] Result Comment: The [place] Diabetes Association (ADA) provides guidance for cutoff [...] Standards of Medical Care in Diabetes 2016, [place] Diabetes Association. Diabetes Care. 2016.39(Suppl 1). Performed By: #### 2 4323-8 #### [facility] CLIA [id number] [address] [place] [address] [place] Potassium [Moles/Vol] 4.2 mmol/L Normal 3.7-5.1 [facility] Comment on above: Order Comment: Anand gomez Type: BLOOD SPECIMEN Ordering Facility: [facility] Address: [address] [place] [address] Performed By: #### 2 4323-8 #### [facility] [id number] [address] [place] [address] [place] Protein [Mass/Vol] 6.8 g/dL Normal 6.3-8.0 [facility] Comment on above: Order Comment: Fadii jason Type: BLOOD SPECIMEN Ordering Facility: [facility] Address: [address] [place] [address] Performed By: #### 2 4323-8 #### [facility] [id number] [address] [place] [address] [place] Sodium [Moles/Vol] 138 mmol/L Normal 136-144 [facility] Comment on above: Order Comment: Fadii men Type: BLOOD SPECIMEN Ordering Facility: [facility] Address: [address] [place] [address] Performed By: #### 2 4323-8 #### [facility] CLIA [id number] [address] [place] [address] [place] Urea nitrogen [Mass/Vol] 9 mg/dL Normal 7-21 [facility] Comment on above: Order Comment: Speci men Type: BLOOD SPECIMEN Ordering Facility: [facility] Address: [facility] [place] [id number] Performed By: #### 2 4323-8 #### [facility] CLIA [id number] [address] [place] [address] [place] XR ANKLE 3V [...] swelling.. IMPRESSION: Postsurgical changes as noted above Laundry Machine Operator: WAQAR Transcribe Date/Time: Aug 04 2024 1:46P Dictated by : ROMANA MAHAN MD This examination was interpreted and the report reviewed and electronically signed by: ROMANA MAHAN MD on Aug 04 2024 1:49PM EST [id number] Normal [facility] XR Ankle - right AP and Late ral and obliqueon 08-04-2024 IMPRESSION: Postsurgical changes as noted above Laundry Machine Operator: WAQAR Transcribe Date/Time: Aug 04 [...] soft tissue swelling.. DIVISION OF RADIOLOGY Provider, [facility] - 08/04/2024 * * *Final Report* * [...] IMPRESSION IMPRESSION: Postsurgical changes as noted above Laundry Machine Operator: PSCHumera Transcribe Date/Time: Aug 04 2024 1:46P Dictated by : ROMANA MAHAN MD This examination was interpreted and the report reviewed and electronically signed by: ROMANA MAHAN MD on Aug 04 2024 1:49PM EST [facility] Radiology Study observation (narrative) [facility] XR Ankle - right AP and Late ral and obliqueOrdered By: Ccf Provider on 08-04-2024 [facility] Orthopedic Visit Reporton Orthopedic Visit Report [facility] [facility] [address] [place] [id number] OFFICE VISIT Date of Service: 02/11/24 MR#: [id number] Acct: [id number] Name: CLAIRE SMITH Rep #: [id number] : 1985 Provider: Dr. Devon Urbano MD Age/Sex: 38/F Location: [facility].BHUP[facility]DRA Status: Signed Intake Vital Signs 11/03/23 14:30 Height 4 ft 11 in Weight: 113 lb BMI 22.8 Intake Visit Reasons: THORACIC SPINE Chief Complaint: Lumbar spine MRI review Is patient in pain?: Yes (lumbar spine) Pain scale (1-10): 7 Allergies No Known Allergies Allergy (Unverified 02/11/24 15:02) PFSH Medical History Ovarian cyst Family History Other [...] by me, Dr. Devon Urbano MD 02/11/24 8773. Part of today???s visit was documented by [...] of her T-12. She was seen at [facility] but did not like the doctor. She has had imaging at [facility] and [facility]. Says that she has had back [...] consideration of injections. Patient was in agreement. 11/22/24 1541 Date Devon Urbano MD Cosigner Signature: Date (if applicable) CC: Normal [facility] Spine Lumbar (Routine)on Spine Lumbar (Routine) [facility] Imaging Services [address] [place], [place] [id number] Spine Lumbar (Routine) MR#: [id number] Acct: [id number] Name: CLAIRE SMITH Rep #: [id number] : 1985 F 37 From: Marcell reed DO PCP: Care Physician,No Primary Status: REG CLI Study: Spine Lumbar (Routine) Date of Exam: 12/15/23 Exam# [id number] Ordering Dr: Devon Urbano MD [id number] EXAM: MR LUMBAR SPINE WITHOUT INTRAVENOUS CONTRAST [...] Devon Urbano MD; No Primary Care Physician Laundry Machine Operator: Signed [facility] Office Visiton 12-14-2023 Follow-up visit [id number] Claire Smith 1985 F Date Provider Department Center 12/14/2023 06922-IYPRFBROBERT [facility] None No family history on file Level of Service:34835 RI POSTOP FOLLOW UP VISIT RELATED TO ORIGINAL PX Reason for Visit and Comments: Post-op [483] - ORIF right bimalleolar ankle Normal [facility] Progress Noteon 12-14-2023 Progress Note Subjective: [...] by Robert Culp M.D.12/14/2023 at 3:06 PM. XR ANKLE 3+ VIEWS RIGHTon XR ANKLE 3+ VIEWS RIGHT 3v right ankle show the hardware remains in good position. The fracture is well-aligned and healing appropriately. The talus is well-positioned in the mortise. 36on 12-01-2023 36 My charted response 36 Name of Caller: Claire Relationship to [...] it. Provider: Dr. Culp Practice Name: Ortho Office Visiton 11-16-2023 Follow-up visit [id number] Claire Smith 1985 F Date Provider Department Center 11/16/2023 95719-BGPKZIROBERT [facility] None No family history on file Level of Service:57305 RI POSTOP FOLLOW UP VISIT RELATED TO ORIGINAL PX Reason for Visit and Comments: Post-op [483] - Right bimalleolar ankle fracture Sx 11/01/23 Progress Noteon 11-16-2023 Progress Note Subjective: Claire [...] Culp M.D. 11/16/2023 at 2:56 PM. Normal [facility] XR ANKLE 3+ VIEWS RIGHTon XR ANKLE 3+ VIEWS RIGHT 3v right ankle show the hardware remains in good position. The fracture is well-aligned and healingappropriately . The talus is well-positioned in the mortise. Normal [facility] Orthopedic Visit Reporton Orthopedic Visit Report [facility] [address] [place] [address] OFFICE VISIT Date of Service: 11/03/23 MR#: [id number] Acct: [id number] Name: CLAIRE SMITH Rep #: [id number] : 1985 Provider: Dr. Devon Urbano MD Age/Sex: 37/F Location: [facility].BHUPENDRA Status: Signed Intake Vital Signs 02/28/21 09:34 10/13/23 11:34 11/03/23 14:30 Height 4 ft 11 in 4 ft 11 in 4 ft 11 in Weight: 113 lb BMI 22.8 Intake Visit Reasons: THORASIC SPINE Chief Complaint: thoracic spine Is patient in pain?: Yes (thoracic spine) Pain scale (1-10): 5 Allergies No Known Allergies Allergy (Unverified 02/28/21 09:37) [facility] Medical History Ovarian cyst Family History Other [...] of her T-12. She was seen at [facility] but did not like the doctor. She has had imaging at [facility] and [facility]. Says that she has had back [...] and stretching (more content not included)... Normal [facility] Thoracic Spine 2 Viewson Thoracic Spine 2 Views [facility] Radiology [address] [place] [address] Thoracic Spine 2 Views MR#: [id number] Acct: [id number] Name: CLAIRE SMITH Rep #: [id number] : 1985 F 37 From: Steve Blanco MD PCP: Care Physician,No Primary Status: DEP AMB Study: Thoracic Spine 2 Views Date of Exam: 11/03/23 Exam# [id number] Ordering Dr: Maggie Major [id number] STUDY: X-RAY - THORACIC SPINE REASON FOR [...] CC: JANELLE Garcia; No Primary Care Physician Laundry Machine Operator: Signed Normal [facility] HCG ( test) Ql (U)o n 11-01-2023 HCG LOT NUMBER [id number] [facility] Apruve Interpretation and review of laboratory results Normal [facility] NEGATIVE QC Pass [facility] POSITIVE QC Pass [employer] [facility] Preg Test, Ur Negative Negative [facility] Healt h [employer] HEMOGLOBIN AND HEMATOCRIT, B LOODon 11-01-2023 Hematocrit (Bld) [Volume fraction] 40.4 % Normal 35.0-47.0 [employer] [facility] Comment on above: Performed By: #### L [id number] ####Marketing Intern: CIARA WILLS ([phone])[facility] ([facility])[address] [place] [address] Hemoglobin (Bld) [Mass/Vol] 13.3 g/dL Normal 11.7-16.0 [facility] Comment on above: Performed By: #### L [id number] ####Marketing Intern: CIARA WILLS ([phone])[facility] ([facility])[address] [place] [address] Hemoglobin (Bld) [Mass/Vol]o n 11-01-2023 Hematocrit (Bld) [Volume fraction] 40.4 % 35.0 - 47.0 % [facility] Interpretation and review of laboratory results Normal [facility] - Hematology and Cell countson 11-01-2023 Hemoglobin (Bld) [Mass/Vol] 13.3 g/dL 11.7 - 16.0 g/dL [facility] No Panel Informationon 10-31 There is no interpretation needed for this exam. IMAGING Nursing Noteon 11-01-2023 Nursing Note Stop sign on chart per protocol: need H&P Normal [facility] Op Noteon 11-01-2023 Op Note Date: 11/01/2023 Location: [facility] OR Name: Claire Smith, : 1985, Diagnosis Pre-op Diagnosis * Displaced bimalleolar fracture of right lower leg, subsequent encounter for closed fracture with routine healing [S82.841D] Post-op Diagnosis * Displaced bimalleolar fracture of right lower leg, subsequent encounter for closed fracture with routine healing [S82.841D] Procedures OPEN REDUCTION INTERNAL FIXATION RIGHT BIMALLEOLAR ANKLE FRACTURE WITH ALLOGRAFT, STRESS EXAM RIGHT ANKLE UNDER FLUOROSCOPY 91783 - RI OPEN TREATMENT BIMALLEOLAR ANKLE FRACTURE Open reduction internal fixation right bimalleolar ankle fracture with allograft, Stress exam right ankle under fluoroscopy 07546 - CHG MANUAL APPL STRESS PFRMD PHYS/QHP JOINT FILMS Surgeons * Robert Culp - Primary Procedure Summary Anesthesia: General ASA: II Estimated Blood Loss: 10 mL Drains: * None in log * Implants Type Name Action Serial No. [employer] Bone BIO CHIPS CANCELLOUS 5CC 1-8MM - [id number] - [id number] Implanted [id number] Screw SCREW CRTX 2.0X38MM S-T T6 RCS - [id number] Implanted Plate PLATE ADAPTION LCP 2X81MM 12SH - [id number] Implanted Screw SCREW CRTX 2.0X34MM S-T T6 RCS - [id number] Implanted Screw SCREW CRTX 2.0X28MM S-T T6 RCS - [id number] Implanted Screw SCREW CRTX 3.5X28MM S-T - [id number] Implanted Plate PLATE LCP 1/3 TUB COLLAR 5H 57 - [id number] Implanted Screw SCREW CRTX 3.5X30MM S-T - [id number] Implanted Plate PLATE LCP 1/3 TUB COLLAR 4H 45 - [id number] Implanted Screw SCREW CRTX 3.5X36MM S-T - [id number] Implanted Screw SCREW CRTX 3.5X26MM S-T - [id number] Implanted Screw SCREW CRTX 3.5X24MM S-T - [id number] Implanted Screw SCREW CANC 4.0X30MM FULL-THRD - [id number] Implanted Screw SCREW CRTX 3.5X60MM S-T - [id number] Implanted Staff: Edi Specialist: Malou Florez RN; Portia Jack RN Scrub [...] to PACU Follow up in 2 weeks Op Note [facility] MAIN OR [address] [facility] [address] Dept: [phone] Loc: [phone] Operative Report Patient Name: Claire Smith Date of : 1985 Date of Surgery: 11/01/23 Pre-operative diagnosis: Right bimalleolar ankle fracture Post-operative diagnosis: Same Procedure(s): Open reduction internal fixation of right bimalleolar ankle fracture Surgeon: Robert Culp M.D. Linter Operator(s): Jayme Gaston M.D. and Demian Castillo M.D. [...] as well as medical complications such as NH, stroke, PE, DVT, and even . Pt [...] Robert Culp MD at 11/01/23, 11:15 AM 36on 10-27-2023 36 PAT orders in Normal [facility] 36 Case # [id number] [facility] 36 Per [facility] = OP Sx CPT codes 33670/07010 = No PA Required 36 Please enter PAT orders: ACH PAT: H&P Surgery: Wednesday11/01/2023 @ 7:30am CASE #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 Oriented x 4 [facility] 10-01-2023 Mental Status [facility] 06-06-2023 Mental Status Oriented x 4 [facility] 10-14-2022 Mental Status Oriented x 4 [facility] Clinical Notes 06-26-2020 to 09-08-2024 Telephone Encounter - Jemma Akers RN - 08/15/2024 4:27 PM EDTTelephone Encounter - Jemma Akers RN - 08/15/2024 4:27 PM EDTTelephone Encounter - Jemma Akers RN - 08/15/2024 4:12 PM EDT Note Date & Type Note Facility 09-08-2024 Radiology Diagnostic study note [facility] Imaging Services [address] [place], [place] [id number] Thoracic Spine 3 Views MR#: [id number] Acct: [id number] Name: CLAIRE SMITH Rep #: [id number] : 1985 F 38 From: Gisele Brothers MD PCP: Care Physician,No Primary Status: REG ER Study:Thoracic Spine 3 Views Date of Exam: 09/08/24 Exam# [id number] Ordering Dr: Izzy Gillis DO PROCEDURE: THORACIC SPINE 3 VIEWS 09/08/2024 REASON FOR EXAM: PAIN TECHNIQUE: THORACIC SPINE 3 VIEWS COMPARISON: MRI of the lumbar spine on 12/15/2023. FINDINGS: Mild chronic compression fracture of T12 vertebral body. No evidence of associated retropulsion or secondary canal stenosis. Mildly increased kyphosis at the level of the thoracolumbar junction. Normal visualized thoracic vertebrae. Normal disc space heights and vertebral endplates. Normal kyphosis. Normal visualized soft tissue structures. RAD/Thoracic Spine 3 Views IMPRESSION: No evidence for acute abnormality. Reading Location: [place] [address] CC: Romie Gillis DO; No Primary Care Physician ~ Laundry Machine Operator: Signed [facility] 09-08-2024 Radiology Diagnostic study note [facility] Imaging Services [address] [place], [place] [id number] Chest PA and Lateral MR#: [id number] Acct: [id number] Name: CLAIRE SMITH Rep #: [id number] : 1985 F 38 From: Gisele Brothers MD PCP: Care Physician,No Primary Status: REG ER Study:Chest PA and Lateral Date of Exam: 09/08/24 Exam# [id number] Ordering Dr: Izzy Gillis DO PROCEDURE: CHEST PA AND LATERAL 09/08/2024 REASON FOR EXAM: CHEST PAIN TECHNIQUE: CHEST PA AND LATERAL COMPARISON: None. FINDINGS: The lungs are expanded. There is no demonstrated parenchymal abnormality. There is no demonstrated pleural abnormality. Normal heart and pericardium. Normal mediastinum and lashell. Normal visualized pulmonary arteries. Normal visualized aortic arch and descending thoracic aorta. Normal visualized thoracic spine. Normal visualized ribs, clavicles, and shoulders. There is no demonstrated abnormality of the visualized soft tissue structures ofthe upper abdomen. RAD/Chest PA and Lateral IMPRESSION: No evidence for acute abnormality. [facility] CC: Romie Gillis DO; No Primary Care Physician ~ Laundry Machine Operator: Signed [facility] 09-08-2024 Radiology Diagnostic study note [facility] Imaging Services [address] [place], [place] [address] Lumbar Spine 2 or 3 Views MR#: [id number] Acct: [id number] Name: CLAIRE SMITH Rep #: [id number] : 1985 F 38 From: Gisele Brothers MD PCP: Care Physician,No Primary Status: REG ER Study:Lumbar Spine 2 or 3 Views Date of Exam: 09/08/24 Exam# [id number] Ordering Dr: Izzy Gillis DO PROCEDURE: LUMBAR SPINE 2 OR 3 VIEWS 09/08/2024 REASON FOR EXAM: PAIN TECHNIQUE: LUMBAR SPINE 2 OR 3 VIEWS COMPARISON: None. FINDINGS: Mild chronic compression deformity of T12 vertebral body. No evidence of associated retropulsion or secondary canal stenosis. Mildly increased kyphosis at the level of the thoracolumbar junction. Mildly exaggerated lumbar lordosis. Mild levoscoliosis apex at L3. T12-L1: Normal disc height. Normal endplates. Normal alignment of the vertebrae. L1-2: Normal disc height. Normal endplates. Normal alignment of the vertebrae. L2-3: Normal disc height. Normal endplates. Normal alignment of the vertebrae. L3-4: Normal disc height. Normal endplates. Normal alignment of the vertebrae. L4-5: Normal disc height. Normal endplates. Normal alignment of the vertebrae. L5-S1: Normal disc height. Normal endplates. Normal alignment of the vertebrae. The soft tissue structures are unremarkable. RAD/Lumbar Spine 2 or 3 Views IMPRESSION: Mild chronic compression deformity of T12 vertebral body. No evidence of associated retropulsion or secondary canal stenosis. Mildly increased kyphosis at the level of the thoracolumbar junction. Mildly exaggerated lumbar lordosis. Mild levoscoliosis apex at L3. Reading Location: [facility] CC: Romie Andes, DO; No Primary Care Physician ~ Laundry Machine Operator: Signed [facility] 08-15-2024 Telephone encounter Note Patient canceled follow up with Dr. Lennon and the CT. [facility] 08-15-2024 Miscellaneous Notes Patient canceled follow up with Dr. Lennon and the CT. Patient calling in stating that she is confused as to why she is being referred to a provider in [place]. Explained that this is a second opinion [...] needs to see a physician out in [place] that she would just return to the initial physician in [place] as it is about the same driving distance or closer. Patient is scheduled for CT on 08/29/2024. Corinna Bobo LPN 2nd attempt lvm to schedule ct 1st attempt LVM to schedule CT Images from the original note were not included. Theodore Michael [facility] Podiatry Pool23 hours ago (4:11 PM) I ordered a ct scan for patient. Dr. Lennon is agreeable to seeing patient pending ct scan. I told her to contact the office and ask to speak with podiatry nurse to help schedule. documented in this encounter [facility] 08-15-2024 Telephone encounter Note Patient calling in stating that she is confused as to why she is being referred to a provider in [place]. Explained that this is a second opinion [...] needs to see a physician out in [place] that she would just return to the initial physician in [place] as it is about the same driving distance or closer. [facility] 08-15-2024 Telephone encounter Note Patient is scheduled for CT on 08/29/2024. Corinna Bobo LPN [facility] Work Phone: 08-12-2024 Telephone encounter Note 2nd attempt lvm to schedule ct [facility] 08-10-2024 Telephone encounter Note 1st attempt LVM to schedule CT [facility] 08-08-2024 Telephone encounter Note Images from the original note were not included. Theodore Michael [facility] Podiatry Pool23 hours ago (4:11 PM) I ordered a ct scan for patient. Dr. Lennon is agreeable to seeing patient pending ct scan. I told her to contact the office and ask to speak with podiatry nurse to help schedule. [facility] 08-07-2024 Telephone encounter Note I attempted to contact patient to discuss getting a ct scan of right ankle. No answer. I ordered the ct scan at the request of Dr. Colt Lennon. I directed patient to contact our office and ask to speak with podiatry nurse to help facilitate scheduling Theodore Michael DPM [facility] 08-07-2024 Miscellaneous Notes I attempted to contact patient to discuss getting a ct scan of right ankle. No answer. I ordered the ct scan at the request of Dr. Colt Lennon. I directed patient to contact our office and ask to speak with podiatry nurse to help facilitate scheduling Theodore Michael DPM documented in this encounter [facility] 08-05-2024 Note HNO ID: [id number] Author: THEODORE MICHAEL, ? Service: ? Author [...] graft placement in September. - Lives in [place], surgery performed in [place]. - Smokes approximately one pack per day. [...] colleague for further evaluation. Attestation Recording using [employer] software for draft documentation of the visit was discussed with the patient/authorized internet sales representative; all questions welcomed and answered. Patient/authorized internet sales representative agreed to proceed Theodore Michael DPM [facility] 08-05-2024 History of Present illness Narrative Kasey [...] graft placement in September. - Lives in [place], surgery performed in [place]. - Smokes approximately one pack per day. [...] colleague for further evaluation. Attestation Recording using [employer] software for draft documentation of the visit was discussed with the patient/authorized internet sales representative; all questions welcomed and answered. Patient/authorized internet sales representative agreed to proceed Theodore Michael DPM Per Dr. Michael, Claire was provided with powerstep original inserts, [...] her more pain. documented in this encounter [facility] 08-04-2024 Miscellaneous Notes Patient notified of results and provider's instructions. Patient verbalizes understanding. Corinna Bobo LPN Images from the original note were not included. Theodore Michael [facility] Podiatry Pool1 hour ago (1:03 PM) Please call patient to inform her that her blood work is essentially normal. Her kidney function is normal. She can take the mobic once daily as needed for pain Theodore Michael DPM documented in this encounter [facility] 08-04-2024 Telephone encounter Note Patient notified of results and provider's instructions. Patient verbalizes understanding. Corinna Bobo LPN [facility] Work Phone: 08-04-2024 Telephone encounter Note Images from the original note were not included. Theodore Michael [facility] Podiatry Pool1 hour ago (1:03 PM) Please call patient to inform her that her blood work is essentially normal. Her kidney function is normal. She can take the mobic once daily as needed for pain Theodore Michael DPM [facility] 08-04-2024 Note HNO ID: [id number] Author: CORINNA BOBO LPN Service: ? Author Type: LICENSED NURSE Type: Progress Notes Filed: 08/05/2024 10:53 Note Text: Per Dr. Michael Claire was provided with powerstep original inserts, size 6, and instructed/educated in its application, wear, and care. All questions were answered, and patient was able to demonstrate competence with the necessary skills to utilize the above equipment. Corinna Bobo LPN [facility] 08-04-2024 Instructions Theodore Michael - 08/04/2024 8:36 AM EDT Powerstep Original Full length. Can purchase at [facility] Runner and boots,shoes and more here in [place], [employer] in [place] or [place]. Also can find in [employer] in [facility]. Powersteps can also be purchased online, [...] ankle pain. This prescription was sent to [facility] on [address] in [place]. Arrange to have the blood work ordered [...] treatment is needed. documented in this encounter [facility] 08-04-2024 Note HNO ID: [id number] Author: CIARA DIAZ MA Service: ? Author Type: Tube Draw Helper Type: Progress Notes Filed: 08/05/2024 10:53 Note [...] a boot, but causes her more pain. [facility] 08-04-2024 History of Present illness Narrative Radiology [...] PATIENT PRESENTS WITH AN IMPLANTABLE OR ATTACHED DINING SERVICES MANAGER: No RADIOLOGY DEPARTMENT: General X-ray: Exam(s) Completed: Lower Extremity X-Ray(s): Ankle, Right PERIPHERAL IV DATA: Not applicable SIGNED BY: RT Erica(Ro) August 04, 2024 7:56 AM documented in this encounter [facility] 08-04-2024 Note HNO ID: [id number] Author: GUS RAMIREZ RT (R) Service: ? Author Type: Hogshead Stock Clerk Type: Progress Notes Filed: 08/04/2024 08:10 Note [...] PATIENT PRESENTS WITH AN IMPLANTABLE OR ATTACHED DINING SERVICES MANAGER: No RADIOLOGY DEPARTMENT: General X-ray: Exam(s) Completed: Lower Extremity X-Ray(s): Ankle, Right PERIPHERAL IV DATA: Not applicable SIGNED BY: RT Erica(Ro) August 04, 2024 7:56 AM [facility] 12-14-2023 History of Present illness Narrative Subjective: [...] at 3:06 PM. documented in this encounter [facility] 11-16-2023 History of Present illness Narrative Subjective: Claire is approximately 2 weeks post op from ORIF right bimalleolar ankle fracture. Pain is moderate. She has new numbness and tingling in her right toes since surgery. She denies other new complaints. Review of Systems Objective: Ht 4' 11 (1.499 m) Wt 112 lb (50.8 kg) LMP 10/29/2023 BMI 22.62 kg/m All incisions are [...] at 2:56 PM. documented in this encounter [facility] 11-01-2023 Note Patient: Claire Dedic Procedure Summary Date: 11/01/23 Room / Location: [facility] OR [address] [place] [address] Operating Room Anesthesia Start: 717 Anesthesia Stop: [...] 18 11/01/23 0855 SpO2 100 % 11/01/23 09 Vitals shown include unfiled device data. Anesthesia [...] once all PACU criteria has been met. [facility] 11-01-2023 Note Patient: Claire Smith Procedure Summary Date: 11/01/23 Room / Location: [facility] OR [address] [place] [address] Operating Room Anesthesia Start: 717 Anesthesia Stop: [...] the day of surgery or procedure by MD, APC supervisor salvage proxy staff ([id number]) The patient did not [...] opportunity for questions and acknowledgement of understanding. [facility] 11-01-2023 Hospital Discharge instructions Jayme Gaston [...] in 2 weeks documented in this encounter [facility] 11-01-2023 Note Peripheral Block Time Out: 11/01/2023 8:43 AM Patient location during procedure: Procedural Start time: 11/01/2023 8:44 AM End time: 11/01/2023 8:48 AM Reason for block: at surgeon's request and post-op pain management Staffing Performed: WELDER SETTER ELECTRON BEAM MACHINE Resident/WELDER SETTER ELECTRON BEAM MACHINE: Noni Mario APRN - WELDER SETTER ELECTRON BEAM MACHINE Preanesthetic Checklist Completed: patient identified, IV checked, site marked, risks and benefits discussed, surgical consent, monitors and equipment checked, pre-op evaluation and timeout performed Region: Lower Extremities Primary: Adductor Canal Peripheral Block Patient position: supine Prep: ChloraPrep Patient monitoring: heart rate, monitoring coordinator and continuous pulse ox Laterality: right Injection [...] injection and Local anesthetic injected without difficultyMedications [id number]-aonxtwtdqpi-mundlbymx ne (TAP) syringe - Injection 15 mL - 11/01/2023 8:44:00 AM lidocaine PF (Xylocaine) 2 % injection - Injection 100 mg - 11/01/2023 8:44:00 AM [facility] 11-01-2023 Note Airway Date/Time: 11/01/2023 7:24 AM Urgency: scheduled Airway not difficult General Information and Staff Patient location during procedure: Procedural Resident/WELDER SETTER ELECTRON BEAM MACHINE: Henri Bey APRN - WELDER SETTER ELECTRON BEAM MACHINE Performed: WELDER SETTER ELECTRON BEAM MACHINE Indications and Patient Condition Indications for airway management: anesthesia Sedation level: Asleep Preoxygenated: yes Patient position: sniffing Mask difficulty assessment: 1 - vent by mask Final Airway Details Final airway type: supraglottic airway Successful airway: Igel Size 4 Number of attempts at approach: 1 [facility] 11-01-2023 Note Formatting of this n ote might be different from the original. [facility] [address] [facility] [address] Dept: [phone] Loc: [phone] Operative Report Patient Name: Claire Smith Date of : 1985 Date of Surgery: 11/01/23 Pre-operative diagnosis: Right bimalleolar ankle fracture Post-operative diagnosis: Same Procedure(s): Open reduction internal fixation of right bimalleolar ankle fracture Surgeon: Robert Culp M.D. Linter Operator(s): Jayme Gaston M.D. and Demian Castillo M.D. [...] as well as medical complications such as NH, stroke, PE, DVT, and even . Pt [...] Robert Culp MD at 11/01/23, 11:15 AM T [facility] 11-01-2023 Note Formatting of this n ote might be different from the original. [facility] MAIN OR [address] [facility] [address] Dept: [phone] Loc: [phone] Operative Report Patient Name: Claire Smith Date of : 1985 Date of Surgery: 11/01/23 Pre-operative diagnosis: Right bimalleolar ankle fracture Post-operative diagnosis: Same Procedure(s): Open reduction internal fixation of right bimalleolar ankle fracture Surgeon: Robert Culp M.D. Linter Operator(s): Jayme Gaston M.D. and Demian Castillo M.D. [...] as well as medical complications such as NH, stroke, PE, DVT, and even . Pt [...] Robert Culp MD at 11/01/23, 11:15 AM [facility] 11-01-2023 Miscellaneous Notes [facility] MAIN OR [address] [facility] [address] Dept: [phone] Loc: [phone] Operative Report Patient Name: Claire Smith Date of : 1985 Date of Surgery: 11/01/23 Pre-operative diagnosis: Right bimalleolar ankle fracture Post-operative diagnosis: Same Procedure(s): Open reduction internal fixation of right bimalleolar ankle fracture Surgeon: Robert Culp M.D. Linter Operator(s): Jayme Gaston M.D. and Demian Castillo M.D. [...] as well as medical complications such as NH, stroke, PE, DVT, and even . Pt [...] protocol: need H&P documented in this encounter [facility] 11-01-2023 Attending History and physical note H&P [...] consider her options. No follow-ups on file.. [facility] 11-01-2023 Note H&P reviewed. The janelle chavez was examined and there are no changes to the H&P. [facility] 11-01-2023 History and physical note H&P [...] follow-ups on file.. documented in this encounter [facility] 11-01-2023 Note Peripheral Block Time Out: 11/01/2023 7:08 AM Patient location during procedure: pre-op Start time: 11/01/2023 7:08 AM End time: 11/01/2023 7:11 AM Reason for block: at surgeon's request and post-op pain management Staffing Performed: WELDER SETTER ELECTRON BEAM MACHINE Resident/WELDER SETTER ELECTRON BEAM MACHINE: ALYSON López CRNA Preanesthetic Checklist Completed: patient identified, IV checked, site marked, risks and benefits discussed, surgical consent, monitors and equipment checked, pre-op evaluation and timeout performed Region: Lower Extremities Primary: Popliteal (Bupivacaine 0.375% with dexamethasone 0.01% with epinephrine 1:200,000) Peripheral Block Patient position: supine Prep: ChloraPrep Patient monitoring: monitoring coordinator, continuous pulse ox and heart rate O2: [...] - IntraVENous 2 mg - 11/01/2023 7:08:00 RRtczXLQERzpadp-ycmlarzadvo-orvyrnf rine (TAP) syringe - Injection 25 mL - 11/01/2023 7:08:00 AM [facility] 11-01-2023 Note Formatting of this n ote might be different from the original. Stop sign on chart per protocol: need H&P [facility] 11-01-2023 Note Formatting of this n ote might be different from the original. Stop sign on chart per protocol: need H&P [facility] 10-31-2023 Note Patient: Claire Smith Procedure Information Date/Time: 11/01/23 0730 Procedures: OPEN REDUCTION INTERNAL FIXATION RIGHT BIMALLEOLAR ANKLE FRACTURE WITH ALLOGRAFT, STRESS EXAM RIGHT ANKLE UNDER FLUOROSCOPY (Right: Ankle) - 105 minutes total Open reduction internal fixation right bimalleolar ankle fracture with allograft, Stress exam right ankle under fluoroscopy (Right: Ankle) - 105 minutes total Location: [facility] OR [address] [place] [address] Operating Room Surgeons: Robert Culp MD Relevant [...] previous visit. Equipment Requests: Additional Equipment Requests [facility] 10-27-2023 History and physical note Subjective: [...] consider her options. No follow-ups on file.. [employer] Work Phone: 10-27-2023 History and physical note [...] follow-ups on file.. documented in this encounter [facility] 10-27-2023 Note Subjective: Claire is a [...] consider her options. No follow-ups on file.. [facility] 10-27-2023 Note Subjective: Claire is a [...] consider her options. No follow-ups on file.. [facility] 10-26-2023 History of Present illness Narrative [...] at 2:58 PM. Surgery Scheduling Instructions Location: [facility] Duration: 90 minutes Type: Outpatient Anesthesia: Popliteal block/GA Position: Supine Table: Regular Radiology: Large C-Arm CPT Code: 87171, 25881 Procedure: Open reduction internal fixation right bimalleolar ankle fracture with allograft, Stress exam right ankle under fluoroscopy Equipment: Sigasi small fragment set, Sigasi minifrag Follow-up: 2,6,12 wks, 3v ankle out of splint documented in this encounter [facility] 10-01-2023 Hospital Discharge instructions Patient Education 10/01/2023 [...] bed rest and pain medicine. Prescription or rckt-zjw-fabbprt pain medicine can be used to control [...] the broken vertebra. This will expand it netbackup engineer to its original shape. Home care You [...] or spreads to your arms or legs. [phone] [employer]. [address] [place] [address]. All rights reserved. This information is not [...] splint gets wet, dry it with a hair colorist on a cool setting. You may use hsws-sdf-zmxdmrx pain medicine to control pain, unless another [...] cast or splint develops cracks or breaks [phone] [employer]. [address] [place] [address]. All rights reserved. This information is not intended as a substitute for professional medical care. Always follow your healthcare professional's instructions. Follow Up Care 10/01/2023 04:04:35 With:ROXANNE BREEN DO, Orthopedic Address: [address] [place] [address], [address] [place] [address]- [phone] When:2-4 days With:ROJAS CHAN DO Address: [address] [place] [address]- [phone] When:2-4 days [facility] 10-01-2023 Note Discharge Instructions Thank you for allowing [facility] to assist you with your healthcare needs. [...] ROXANNE BREEN DO, Orthopedic When:Within 2-4 days Where:[address] [facility], [address] [place] [address]- [phone] Follow Up with ROJAS CHAN DO When:Within 2-4 days Where:[address] [place] [phone] Allergies No Known Medication Allergies Medications Please [...] bed rest and pain medicine. Prescription or kygg-xqs-lkmuiix pain medicine can be used to control [...] the broken vertebra. This will expand it netbackup engineer to its original shape. Home care You [...] or spreads to your arms or legs. [phone] [employer]. [address] [place], [place] [id number]. All rights reserved. This information is not [...] splint gets wet, dry it with a hair colorist on a cool setting. You may use jpgj-ygq-jdnzqps pain medicine to control pain, unless another [...] cast or splint develops cracks or breaks [phone] [employer] [place] [address], [place] [address]. All rights reserved. This information is not intended as a substitute for professional medical care. Always follow your healthcare professional's instructions. Additional Information VACCINATE! IT SAVES LIVES! Members of the community who have not yet received the COVID-19 vaccine and would like to receive it can visit one of [facility] vaccine clinics. There are many vaccine clinic locations within the [facility]. For locations and available times, please visit www.[email or web address].[place].gov /. It is important to note that some COVID mobile vaccine clinics are held outdoors and may be canceled in rainy or stormy conditions. To learn more about pediatric vaccinations (ages 5-11), we invite you to visit the [facility] webpage. https://www.[facility].org/page s/9614-Dsabj-Irpzbnogleh-Frequently -Asked-Questions.html To learn more about the COVID-19 vaccine, we invite you to visit the CDC website for a list of frequently asked questions. https://www.cdc.gov/coronavirus/201 9-ncov/vaccines/faq.html [facility] Patient Portal Access Instructions: Stay connected with your healthcare team and access your personal medical information anytime with the [facility] Patient Portal. If you would like a full copy of your medical records please contact the [facility] Medical Records Department Wednesday through Wednesday between 8a.m. and 4:30p.m. Please follow the directions below to access the portal: 1.Access the email account you provided upon registration to the hospital.2.Look for an invitation email from [facility].3.Open the email and access the invitation link: Accept Invitation to [facility]4.Fill in the required ghosh to create your account. Sign into [email or web address] with your username and password that you [...] you will allow to register on the [facility] Patient Portal for access to your information. You can also access the [facility] Patient Portal on the [employer] jimmy. Simply click on Health Records under [...] Call your local pharmacy or go to [email or web address] to find one close to you.3.Make use of household items: Use cat litter or old coffee grounds to dispose medications if other options are not available. Mix your drugs with these household products, seal them in an airtight container and throw it into the garbage. Call [facility]: [phone] to be sure your drugs can be [...] aware that I should contact my doctor. Patient/Inorganic Chemist Signature: ____ Date/Time: Relationship to Patient: __ Witness Name/Signature: Date/Time: [facility] 10-01-2023 Note Discharge Instructions Thank you for allowing [facility] to assist you with your healthcare needs. [...] ROXANNE BREEN DO, Orthopedic When:Within 2-4 days Where:[address] [place] [address], [address] [place] [address]-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 Comments Post-op Right bimalleolar an kle fracture Sx 11/01/23 Reason Comments Post-op ORIF right bimalleol ar ankle Reason Comments New Pain Scheduled Active and Recently Administ ered Medications (unrecognized section and content) Medication Order 10/30/2023 10/31/2023 11/01/2023 acetaminophen (Tylenol) tablet 1,000 mg (COMPLETED) 1,000 mg, Oral, Once, On Wed11/01/23 at 0645, For 1 dose, Preprocedure, Maximum [...] Angela RN)[id number] (Continued by Anesthesia - Provider: Henri Bey APRN - SILAS)[id number] (Stopped - Provider: ALYSON Mckeon CRNA) sodium [...] or prosecute any alcohol or drug abuse patient.[facility] ClinicIn the event this information is protected by the Federal Confidentiality of Alcohol and Drug Abuse Patient Records regulations: The Federal rules restrict any use of the information to criminally investigate or prosecute any alcohol or drug abuse patient.[facility] IncIn the event this information is protected by the Federal Confidentiality of Alcohol and Drug Abuse Patient Records regulations: The Federal rules restrict any use of the information to criminally investigate or prosecute any alcohol or drug abuse patient.[facility] IncIn the event this information is protected by the Federal Confidentiality of Alcohol and Drug Abuse Patient Records regulations: The Federal rules restrict any use of the information to criminally investigate or prosecute any alcohol or drug abuse patient.[facility], IncIn the event this information is protected by the Federal Confidentiality of Alcohol and Drug Abuse Patient Records regulations: The Federal rules restrict any use of the information to criminally investigate or prosecute any alcohol or drug abuse patient.[facility] Goals (unrecognized section and content) Goals may be documented in a n alternate section FOR RECORDS PERTAINING TO PATIENTS WHO ARE [...] BE BASED ON THE PRIMARY CLINICAL RECORDS. [facility] [employer] [facility]. provides no warranty or guarantee of the accuracy or completeness of information in this document.
== END 2024-09-08 04:58 | disposition home or self-care (01) ==
LOC: ED 03:27
PROVIDERS: Visit Provider Emergency Medicine
DX: M54.9 Dorsalgia, unspecified (principal); X58.XXXA Exposure to other specified factors, initial encounter; F12.10 Cannabis abuse, uncomplicated
CPT/HCPCS: 71046; 72072; 72100